=== PATIENT | female | born 1980 | race Caucasian/White ===

== ENCOUNTER 2016-12-12 14:21 | Emergency (ER) | payer SELFPAY ==
[~2016-12-12] VITALS: Ht 144.8 cm; Wt 30.3 kg
[2016-12-12 14:38] VITALS: BP 105/66; PULSE 77; RESP 18; TEMP 97.9; O2SAT 98
[2016-12-12] MEDS ORDERED: diphenhydrAMINE HCL 50 MG/ML VIAL IV PUSH ONE (15:30)
[2016-12-12] MEDS ORDERED: KETOROLAC TROMETHAMINE 30 MG/ML (IVP) VIAL IV PUSH ONE (15:30)
[2016-12-12] MEDS ORDERED: SODIUM CHLOR 0.9% 1000 ML INJ 1,000 ML IV ONE (15:30)
[2016-12-12] MEDS ORDERED: PROCHLORPERAZINE INJ 10 MG/2 ML VIAL IV PUSH ONE (15:30)
--- NOTE | 2016-12-12 15:38 | PD ---
HPI Chief Complaint: Headache Time Seen by Provider: 15:25 Travel History International Travel<30 days: No Contact w/Intl Traveler<30days: No Traveled to known affect area: No History of Present Illness HPI This is a 36-year-old female who presents to the emergency department with headache that started 7 days ago, constant like a band across her head, moderate severity associated with nausea but no vomiting. She says she has chronic headaches. She just moved from [place] where she was being prescribed sumatriptan, Zofran and Lortab for her headaches. She says she's been taking BUT she doesn't her. Her headache was gradual in onset. She denies any weakness, numbness, difficulty walking or talking. 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 migraines ?: Not LMP: 12/05/16 Social History Tobacco Use: No Allergies-Medications (Allergen,Severity, Reaction): Coded Allergies: topiramate (Verified Allergy, Unknown, 12/12/16) "mimics a seizure" Uncoded Allergies: steroids (Allergy, Unknown, 12/12/16) "will make me have a heart attack" Reported Meds & Prescriptions Reported Meds & Active Scripts Active Reported Multiple Vitamin 1 Tab 1 Tab PO DAILY Vitamin C (Ascorbic Acid) 250 Mg Chew 500 Mg CHEW DAILY B-12 (Cyanocobalamin) 500 Mcg Subl 500 Mcg SL DAILY Ferrous Gluconate 324 Mg (37.5 Mg Iron) Tab 325 Mg PO DAILY Baclofen 10 Mg Tab 5 Mg PO TID Indomethacin 25 Mg Cap 25 Mg PO BID Take with food, milk, or antacids to decrease stomach adverse effects. Zonisamide 100 Mg Cap 200 Mg PO DAILY Imitrex (Sumatriptan Succinate) 50 Mg Tab 50 Mg PO ONCE PRN If a satisfactory response has not been obtained at 2 hours, a second dose may be administered Zofran (Ondansetron HCl) 4 Mg Tab 4 Mg PO Q8HR PRN Review of Systems Except as stated in HPI: all other systems reviewed are Neg Physical Exam Narrative GENERAL:Well appearing, no acute distress SKIN: Focused skin assessment warm and dry. HEAD: Atraumatic. Normocephalic. EYES: Pupils equal and round. No injection or drainage. ENT: Moist mucous membranes NECK: Trachea midline. CARDIOVASCULAR: Regular rate and rhythm. No murmur appreciated. RESPIRATORY: Clear to auscultation. Breath sounds equal bilaterally. GASTROINTESTINAL: Abdomen soft, non-tender, nondistended. MUSCULOSKELETAL: No obvious deformities. NEUROLOGICAL: Awake and alert. No obvious cranial nerve deficits. No dysarthria or aphasia. No upper or lower extremity drift. No upper extremity ataxia. Visual ford intact. PSYCHIATRIC: Appropriate mood and affect; insight and judgment normal. Data Data Last Documented VS Vital Signs Date Time Temp Pulse Resp B/P (MAP) Pulse Ox O2 Delivery O2 Flow Rate FiO2 12/12/16 15:42 Room Air 12/12/16 14:38 97.9 77 18 105/66 (79) 98 Orders Orders ^ Insert Iv (12/12/16 15:30) Ketorolac Inj (Toradol Inj) (12/12/16 15:30) Prochlorperazine Inj (Compazine Inj) (12/12/16 15:30) Diphenhydramine Inj (Benadryl Inj) (12/12/16 15:30) Sodium Chlor 0.9% 1000 Ml Inj (Ns 1000 M (12/12/16 15:30) MDM Medical Decision Making Medical Screen Exam Complete: Yes Emergency Medical Condition: Yes Interpretation(s) Afebrile, no tachycardia, normotensive Differential Diagnosis Tension headache, migraine headache, subarachnoid hemorrhage Narrative Course This is a 36-year-old female who has a history of migraines who presents to the emergency department with an exacerbation of her chronic headaches over the past week. She has a normal neurologic exam. Her headache was gradual in onset and I don't have any suspicion for subarachnoid hemorrhage based on her symptoms. Patient was given Toradol, Compazine and Benadryl and she feels much better. She'll be discharged home on naproxen. Diagnosis Primary Impression: Migraine Qualified Codes: G43.009 - Migraine without aura, not intractable, without status migrainosus Patient Instructions: General Instructions Additional Instructions: If you develop severe worsening headache, persistent vomiting, numbness, weakness, difficulty walking or difficulty talking return to the emergency department immediately. Sometimes in the emergency department we did not identify the cause of headaches. If you continued to have headaches it is very important that you followup with your primary care physician as you may need further testing with an MRI. Med/Other Pt SpecificInfo: Prescription(s) given Scripts Naproxen (Naproxen) 250 Mg Tab 250 MG PO BID for 5 Days, TAB 0 Refills Prov: Lilly Heart MD 12/12/16 Disposition: 01 DISCHARGE HOME Condition: Stable Lilly Heart MD Dec 12, 2016 15:38
[2016-12-12] MEDS ORDERED: BACL10TA PO (15:47)
[2016-12-12] MEDS ORDERED: VITA250C3 CHEW (15:47)
[2016-12-12] MEDS ORDERED: ZONI100C2 PO (15:47)
[2016-12-12] MEDS ORDERED: MULTTAB67 PO (15:47)
[2016-12-12] MEDS ORDERED: INDO25CA PO (15:47)
[2016-12-12] MEDS ORDERED: IMIT50TA PO (15:47)
[2016-12-12] MEDS ORDERED: ZOFR4TAB PO (15:47)
[2016-12-12] MEDS ORDERED: FERR325T72 PO (15:47)
[2016-12-12] MEDS ORDERED: CYAN500S SL (15:47)
[2016-12-12] MEDS ORDERED: NAPR250T PO (16:51)
[2016-12-12 17:43] VITALS: BP 92/56; PULSE 70; RESP 16; O2SAT 100
== END 2016-12-12 17:46 | disposition home or self-care (01) ==
LOC: PHED 14:21
DX: G43.009 Migraine without aura, not intractable, without status migrainosus (principal)
CPT/HCPCS: 96361; 96374; 96375; 99284; J0780; J1200; J1885; J7030

== ENCOUNTER 2017-03-03 19:54 | Emergency (ER) | payer OTHER ==
[~2017-03-03] VITALS: Ht 154.9 cm; Wt 30.8 kg
[~2017-03-03 19:54] MED LIST: BACL10TA PO; FERR325T72 PO; IMIT50TA PO; INDO25CA PO; MULTTAB67 PO; NAPR250T4 PO; VITA250C3 CHEW; VITA500L2 SL; ZOFR4TAB PO; ZONI100C2 PO
[2017-03-03 19:58] VITALS: BP 107/67; PULSE 87; RESP 16; TEMP 97.4; O2SAT 100
[2017-03-03] MEDS ORDERED: ZONI1CAP26 PO (20:08)
--- NOTE | 2017-03-03 20:31 | PD ---
HPI Chief Complaint: Pain: Acute or Chronic Time Seen by Provider: 20:16 Travel History International Travel<30 days: No Contact w/Intl Traveler<30days: No Traveled to known affect area: No History of Present Illness HPI 36-year-old female here with right knee pain after twisting injury yesterday. She did not fall to the ground. She has pain with weightbearing and full extension and full flexion. She had a similar injury in the past which was a quadriceps tear. She reports this pain is less severe than that injury. She was followed by orthopedic doctor in [place]. Pain is relieved with rest. Symptom severity is moderate. PFSH Past Medical History Musculoskeletal: Yes Migraines: Yes ?: Not Past Surgical History Cardiac Surgery: Yes Cholecystectomy: Yes Other Surgery: Yes (SCOLIOSIS SX) Social History Alcohol Use: No Tobacco Use: No Substance Use: No Allergies-Medications (Allergen,Severity, Reaction): Coded Allergies: topiramate (Verified Allergy, Unknown, 03/03/17) "mimics a seizure" Uncoded Allergies: steroids (Allergy, Unknown, 12/12/16) "will make me have a heart attack" Reported Meds & Prescriptions Reported Meds & Active Scripts Active Reported Zonegran (Zonisamide) 25 Mg Cap 50 Mg PO HS Multiple Vitamin 1 Tab 1 Tab PO DAILY Vitamin C (Ascorbic Acid) 250 Mg Chew 500 Mg CHEW DAILY B-12 (Cyanocobalamin) 500 Mcg Subl 500 Mcg SL DAILY Ferrous Gluconate 324 Mg (37.5 Mg Iron) Tab 325 Mg PO DAILY Baclofen 10 Mg Tab 5 Mg PO TID Indomethacin 25 Mg Cap 25 Mg PO BID Take with food, milk, or antacids to decrease stomach adverse effects. Zonisamide 100 Mg Cap 200 Mg PO DAILY Imitrex (Sumatriptan Succinate) 50 Mg Tab 50 Mg PO ONCE PRN If a satisfactory response has not been obtained at 2 hours, a second dose may be administered Zofran (Ondansetron HCl) 4 Mg Tab 4 Mg PO Q8HR PRN Review of Systems Except as stated in HPI: all other systems reviewed are Neg Physical Exam Narrative GENERAL: Alert female well-appearing. Patient ambulated into the emergency room SKIN: Warm and dry. HEAD: Normocephalic. EYES: No injection or drainage. NECK: Supple, trachea midline. CARDIOVASCULAR: Regular rate and rhythm without murmurs, gallops, or rubs. RESPIRATORY: Breath sounds equal bilaterally. No accessory muscle use. GASTROINTESTINAL: Abdomen soft, non-tender, nondistended. MUSCULOSKELETAL: No cyanosis, or edema. Right lower extremity: Patient has tenderness over the anterior aspect of the knee. No deformity. No swelling or effusion. The knee is stable. Reported pain with flexion and full extension. 2+ popliteal, posterior tibial, dorsal pedis pulse. Normal sensation and brisk cap refill. Data Data Last Documented VS Vital Signs Date Time Temp Pulse Resp B/P (MAP) Pulse Ox O2 Delivery O2 Flow Rate FiO2 03/03/17 19:58 97.4 87 16 107/67 (80) 100 Orders Orders Ignacio Bandage (03/03/17 20:31) Crutches (03/03/17 20:31) MDM Medical Decision Making Medical Screen Exam Complete: Yes Emergency Medical Condition: Yes Differential Diagnosis Knee sprain, strain, meniscus injury, quadriceps tendon injury Narrative Course 36 -year-old female here with right knee pain for a minor twisting injury yesterday. She had a previous quadriceps tendon injury several years ago. The knee is stable. There is minimal swelling. She is ambulatory. The knee will be immobilized with Ignacio wrap and she'll be instructed to follow-up with orthopedic Diagnosis Primary Impression: Sprain, knee Qualified Codes: S83.91XA - Sprain of unspecified site of right knee, initial encounter Referrals: Payam Owusu MD Orthopedist Departure Forms: Tests/Procedures, Work Release Special Instructions: No bending for one week. Additional Instructions: Ignacio wrap and crutches for support. Follow-up with orthopedic doctor. Tylenol as in for pain. Disposition: 01 DISCHARGE HOME Condition: Stable AricreginaldoDivya SANABRIA Mar 03, 2017 20:30
== END 2017-03-03 20:42 | disposition home or self-care (01) ==
LOC: PHEFT 19:54
DX: S83.91XA Sprain of unspecified site of right knee, initial encounter (principal); M41.9 Scoliosis, unspecified; X50.1XXA Overexertion from prolonged static or awkward postures, initial encounter; Z79.899 Other long term (current) drug therapy
CPT/HCPCS: 99282; E0113

== ENCOUNTER 2017-04-11 13:22 | Emergency (ER) | payer OTHER ==
[~2017-04-11] VITALS: Ht 154.9 cm; Wt 31.6 kg
[~2017-04-11 13:22] MED LIST changes: -NAPR250T4 PO; +ZONI1CAP26 PO
[2017-04-11 13:26] VITALS: BP 121/79; PULSE 106; RESP 16; TEMP 97.8; O2SAT 100
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
[2017-04-11] MEDS ORDERED: IBUPROFEN 400 MG TAB PO ONE (13:45)
[2017-04-11] MEDS ORDERED: LIDOCAINE 1%/EPINEPHrine 1:100,000 SOLN 20 ML VIAL INFIL ONE (13:45)
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
[2017-04-11 14:41] VITALS: RESP 18
[2017-04-11] MEDS ORDERED: CEPH-460 PO (14:58)
[2017-04-11] MEDS ORDERED: IBUP1TAB5 PO (14:59)
[2017-04-11] MEDS ORDERED: CEPHALEXIN MONOHYDRATE 500 MG CAP PO ONE (15:00)
== END 2017-04-11 15:06 | disposition home or self-care (01) ==
LOC: PHEFT 13:22
DX: S81.012A Laceration without foreign body, left knee, initial encounter (principal); V00.141A Fall from scooter (nonmotorized), initial encounter
CPT/HCPCS: 12002; 73564

== ENCOUNTER 2017-04-24 09:28 | Emergency (ER) | payer OTHER ==
[~2017-04-24] VITALS: Ht 152.4 cm; Wt 31.0 kg
[~2017-04-24 09:28] MED LIST changes: +CEPH-460 PO; +IBUP1TAB5 PO
[2017-04-24 09:30] VITALS: BP 127/60; PULSE 91; RESP 16; TEMP 98; O2SAT 95
--- NOTE | 2017-04-24 11:26 | PD ---
HPI Chief Complaint: Wound/Suture/Staple Re-Check Time Seen by Provider: 10:40 Travel History International Travel<30 days: No Contact w/Intl Traveler<30days: No Traveled to known affect area: No History of Present Illness HPI This is a 36-year-old female here for suture removal to her left knee. She had sutures placed proximal 10 days ago. She denies fever or chills. No redness or drainage from the site. She reports mild tenderness at the site but this has been present since the injury. Severity is mild. No alleviating factors. PFSH Past Medical History Medical History: Denies Significant Hx Diminished Hearing: No Influenza Vaccination: Yes ?: Not Social History Alcohol Use: No Tobacco Use: No Allergies-Medications (Allergen,Severity, Reaction): Coded Allergies: prednisolone (Verified Allergy, Unknown, 04/24/17) topiramate (Verified Allergy, Unknown, 04/24/17) Reported Meds & Prescriptions Reported Meds & Active Scripts Active No Active Prescriptions or Reported Medications Review of Systems Except as stated in HPI: all other systems reviewed are Neg General / Constitutional: No: Fever Physical Exam Narrative GENERAL: Alert well-appearing 36-year-old female. SKIN: Warm and dry. Healing laceration to left anterior knee. No evidence of infection. Sutures in place. HEAD: Atraumatic. Normocephalic. EYES: No injection or drainage. NECK: Supple CARDIOVASCULAR: Regular rate and rhythm. RESPIRATORY: No respiratory distress. MUSCULOSKELETAL: Extremities without clubbing, cyanosis, or edema. No obvious deformities. See skin noted above Data Data Last Documented VS Vital Signs Date Time Temp Pulse Resp B/P (MAP) Pulse Ox O2 Delivery O2 Flow Rate FiO2 04/24/17 09:30 98.0 91 16 127/60 (82) 95 MDM Medical Decision Making Medical Screen Exam Complete: Yes Emergency Medical Condition: Yes Differential Diagnosis Suture removal, Wound infection, abscess Narrative Course This is a 36-year-old female here for suture removal. The wound is well- appearing. No evidence of infection. 5 sutures removed. Wound edges are well approximated. Procedures Procedure Narrative Suture removal Diagnosis Primary Impression: Visit for suture removal Referrals: Primary Care Physician Scripts No Active Prescriptions or Reported Meds Disposition: 01 DISCHARGE HOME Condition: Stable Divya Lawler Apr 24, 2017 11:26
== END 2017-04-24 11:31 | disposition home or self-care (01) ==
LOC: MERGE 09:28 → PHED 09:28 → PHEFT 11:31
DX: Z48.02 Encounter for removal of sutures (principal)
CPT/HCPCS: 99281

== ENCOUNTER 2017-08-21 18:32 | Emergency (ER) | payer OTHER ==
[~2017-08-21] VITALS: Ht 154.9 cm; Wt 31.0 kg
[2017-08-21 18:40] VITALS: BP 119/60; PULSE 88; RESP 16; TEMP 98.1; O2SAT 100
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
[2017-08-21] MEDS ORDERED: ACETAMINOPHEN 325 MG TAB PO ONE (19:00)
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
[2017-08-21] MEDS ORDERED: TYLETAB34 PO (20:25)
== END 2017-08-21 20:38 | disposition home or self-care (01) ==
LOC: PHEFT 18:32
DX: S80.01XA Contusion of right knee, initial encounter (principal); M79.1 Myalgia; G89.29 Other chronic pain; V00.831A Fall from motorized mobility scooter, initial encounter; Y93.I9 Activity, other involving external motion
CPT/HCPCS: 73564; 99283; E0113

== ENCOUNTER 2017-08-24 21:32 | Emergency (ER) | payer SELFPAY ==
[~2017-08-24 21:32] MED LIST changes: -CEPH-460 PO; -IBUP1TAB5 PO; +TYLETAB34 PO; -VITA500L2 SL
[2017-08-24 21:34] VITALS: BP 114/53; PULSE 84; RESP 18; TEMP 98.1; O2SAT 99
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
== END 2017-08-25 01:15 | disposition home or self-care (01) ==
LOC: NEPC 21:32
DX: S89.91XD Unspecified injury of right lower leg, subsequent encounter (principal); M25.461 Effusion, right knee; V28.9XXD Unspecified motorcycle rider injured in noncollision transport accident in traffic accident, subsequent encounter; Q79.0 Congenital diaphragmatic hernia; M41.9 Scoliosis, unspecified; Z88.8 Allergy status to other drugs, medicaments and biological substances; Z79.899 Other long term (current) drug therapy
CPT/HCPCS: 73700; 99283; L1830

== ENCOUNTER 2017-09-16 08:09 | Inpatient (IN) ==
[2017-09-16] MEDS ORDERED: Morphine Inj 4 MG/ML Vial IV.PUSH ONE (08:48)
[2017-09-16] MEDS ORDERED: Sodium Chlor 0.9% Inj 500 ML IV.SIG ONE (08:50)
[2017-09-16] MEDS ORDERED: Diatrizoate Meglum/Diatrizoate Sod Liq 9 ML UDC PO ONE (09:05)
[2017-09-16 09:13] LABS: Chloride 104 meq/L (98-107); Potassium 5.1 meq/L (3.5-5.1); Sodium 136 meq/L (136-145)
[2017-09-16 09:17] LABS: Albumin 4.3 g/dL (3.4-5.0); Anion Gap 6 meq/L (5-15); Blood Urea Nitrogen 18 mg/dL (7-18); Carbon Dioxide 26.4 meq/L (21.0-32.0); Glucose,Random 151 mg/dL (74-106); Lipase 80 U/L (73-393)
[2017-09-16 09:20] LABS: Alanine Aminotransferase 19 U/L (10-53); Aspartate Aminotransferase 31 U/L (15-37); Glomerular Filtration Rate Greater Than 89 mL/min (>89)
[2017-09-16 09:22] LABS: Total Protein 8.4 g/dL (6.4-8.2)
[2017-09-16 09:23] LABS: Alkaline Phosphatase 47 U/L (45-117)
[2017-09-16 09:39] LABS: Baso # (Auto) 0.1 th/mm3 (0.0-0.2); Baso % (Auto) 0.4 % (0.0-2.0); Eos % (Auto) 0.2 % (0.0-4.0); Hematocrit 43.1 % (35.0-46.0); Hemoglobin 13.9 gm/dL (11.6-15.3); Lymph # (Auto) 0.8 th/mm3 (1.0-4.8); Lymph % (Auto) 6.3 % (9.0-44.0); Mean Corpuscular HGB Conc 32.1 % (32.0-36.0); Mean Corpuscular Hemoglobin 30.4 pg (27.0-34.0); Mean Corpuscular Volume 94.8 fL (80.0-100.0); Mean Platelet Volume 8.6 fL (7.0-11.0); Mono # (Auto) 0.5 th/mm3 (0.0-0.9); Neut # (Auto) 11.8 th/mm3 (1.8-7.7); Neut % (Auto) 89.1 % (16.0-70.0); Platelet Count 287 th/mm3 (150-450); Red Blood Count 4.55 mil/mm3 (4.00-5.30); Red Cell Distribution Width 15.5 % (11.6-17.2); White Blood Count 13.2 th/mm3 (4.0-11.0)
[2017-09-16 09:53] LABS: Bilirubin,Urine Negative (Negative); Clarity,Urine Clear (Clear); Color,Urine Yellow (Yellw/Straw); Glucose,Urine (UA) Negative (Negative); Leukocyte Esterase,Urine Negative (Negative); Nitrite,Urine Negative (Negative); Specific Gravity,Urine 1.025 (1.002-1.035); Urobilinogen,Urine 0.2 mg/dL (Less than 2)
[2017-09-16 10:11] LABS: Collection Time,Urine 945 hours
[2017-09-16 10:13] LABS: Amorphous Sediment,Urine Moderate /hpf; Mucus,Urine Moderate /lpf (Occasional); Squamous Epithelial Cell,Urine Greater than 10 /hpf (0-5); WBC,Urine 0-5 /hpf (0-5)
--- NOTE | 2017-09-16 10:49 | ED ---
HPI General Chief complaint: Nausea/Vomiting/Diarrhea Stated complaint: Nausea/Vomiting x 4 am today Time Seen by Provider: 09/16/17 08:41 History of Present Illness HPI narrative: 37-year-old woman with history of gastroschisis as a new cholecystectomy, presents emerged department with nausea vomiting times 4 AM. Some abdominal pain and cramping as well as some distention with this. No diarrhea. Positive chills. She has not had similar problems before. No definite sick contacts. No travel or unusual foods. Vomiting is been persistent, severe. No other aggravating or alleviating factors. Abdominal pain is generalized without radiation. Related Data Home Medications Medication Instructions Recorded Confirmed Multi Vitamin 1 tab PO DAILY 09/16/17 09/16/17 baclofen 5 mg PO TID PRN 09/16/17 09/16/17 ferrous gluconate 324 mg PO DAILY 09/16/17 09/16/17 indomethacin 25 mg PO BID 09/16/17 09/16/17 ondansetron HCl [Zofran] 4 mg PO QID PRN 09/16/17 09/16/17 sumatriptan succinate [Imitrex] 50 mg PO Q2-4H PRN 09/16/17 09/16/17 zonisamide 100 mg PO DAILY 09/16/17 09/16/17 zonisamide [Zonegran] 25 mg PO HS 09/16/17 09/16/17 Allergies Allergy/AdvReac Type Severity Reaction Status Date / Time prednisolone Allergy Unknown Verified 08/24/17 21:36 topiramate Allergy Unknown Verified 08/24/17 21:36 steroids Allergy Unknown Uncoded 12/12/16 14:43 Review of Systems ROS Unobtainable All other systems reviewed negative except as stated in HPI [facility] Medical History Medical History Congenital diaphragmatic hernia (Acute) Gastroschisis (Acute) Migraines (Acute) Scoliosis (Acute) Surgical History Surgical History Hx of cholecystectomy (Acute) Hx of heart surgery (Acute) Hx of knee surgery (Acute) Social History Social History Substance History: No History of Abuse Second Hand Smoke Exposure: No Smoking Status: Never smoker How Often Do You Have a Drink Containing Alcohol: Never Recent Travel in [facility] within the Last 8 Weeks: No Recent Out of Country Travel within the Last 8 Weeks: No Immunization History Tetanus Immunization: Unsure Hx Influenza Vaccine This Season: Yes Exam Narrative Exam Narrative: GENERAL: Very petite 37-year-old woman with no acute distress. SKIN: Focused skin assessment warm/dry. HEAD: Atraumatic. Normocephalic. EYES: Pupils equal and round. No scleral icterus. No injection or drainage. ENT: No nasal bleeding or discharge. Mucous membranes pink and moist. NECK: Trachea midline. No JVD. CARDIOVASCULAR: Regular rate and rhythm. No murmur appreciated. RESPIRATORY: No accessory muscle use. Clear to auscultation. Breath sounds equal bilaterally. GASTROINTESTINAL: Abdomen is distended, tympanic to percussion, mild diffuse tenderness. MUSCULOSKELETAL: No obvious deformities. Nearly cachectic. NEUROLOGICAL: Awake and alert. No obvious cranial nerve deficits. Motor grossly within normal limits. Normal speech. PSYCHIATRIC: Appropriate mood and affect; insight and judgment normal. Course Initial Documented Vital Signs Temperature 97.8 F 09/16/17 08:20 Pulse Rate 89 09/16/17 08:20 Respiratory Rate 16 09/16/17 08:20 Blood Pressure 96/57 L 09/16/17 08:20 Pulse Oximetry 98 09/16/17 08:20 Last Documented Vital Signs Temperature 97.8 F 09/16/17 08:20 Pulse Rate 93 H 09/16/17 13:00 Respiratory Rate 18 09/16/17 13:00 Blood Pressure 106/73 09/16/17 13:00 Pulse Oximetry 98 09/16/17 13:00 Medical Decision Making [facility] Narrative Medical decision making narrative: This is a 37-year-old woman, history of complex abdominal surgeries as an , no trouble since of bowel obstructions or the like, very cachectic appearing, here with nausea vomiting abdominal distention worrisome for obstruction. No diarrhea to suggest gastroenteritis. Will check labs, CT with IV and p.o. contrast, reassess. Lab Data Lab results reviewed: Yes I reviewed the patient's lab results. Result diagrams: 09/16/17 09:00 09/16/17 09:00 Lab Results 09/16/17 09/16/17 09/16/17 Range/Units 09:00 09:00 09:45 CBC w Diff Auto diff final WBC 13.2 H (4.0-11.0) th/mm3 RBC 4.55 (4.00-5.30) mil/mm3 Hgb 13.9 (11.6-15.3) gm/dL Hct 43.1 (35.0-46.0) % MCV 94.8 (80.0-100.0) fL MCH 30.4 (27.0-34.0) pg MCHC 32.1 (32.0-36.0) % RDW 15.5 (11.6-17.2) % Plt Count 287 (150-450) th/mm3 MPV 8.6 (7.0-11.0) fL Neut % (Auto) 89.1 H (16.0-70.0) % Lymph % (Auto) 6.3 L (9.0-44.0) % Robertson % (Auto) 4.0 (0.0-8.0) % Eos % (Auto) 0.2 (0.0-4.0) % Baso % (Auto) 0.4 (0.0-2.0) % Neut # (Auto) 11.8 H (1.8-7.7) th/mm3 Lymph # (Auto) 0.8 L (1.0-4.8) th/mm3 Robertson # (Auto) 0.5 (0.0-0.9) th/mm3 Eos # (Auto) 0.0 (0.0-0.4) th/mm3 Baso # (Auto) 0.1 (0.0-0.2) th/mm3 WBC Differential . Differential Comment . Sodium 136 (136-145) meq/L Potassium 5.1 (3.5-5.1) meq/L Chloride 104 (98-107) meq/L Carbon Dioxide 26.4 (21.0-32.0) meq/L Anion Gap 6 (5-15) meq/L BUN 18 (7-18) mg/dL Creatinine 0.71 (0.50-1.00) mg/dL Estimated GFR Greater than 89 (>89) mL/min Random Glucose 151 H (74-106) mg/dL Calcium 9.0 (8.5-10.1) mg/dL Total Bilirubin 0.5 (0.2-1.0) mg/dL AST 31 (15-37) U/L ALT 19 (10-53) U/L Alkaline Phosphatase 47 (45-117) U/L Total Protein 8.4 H (6.4-8.2) g/dL Albumin 4.3 (3.4-5.0) g/dL Lipase 80 (73-393) U/L Ur Collection Type Clean catch Urine Color Yellow (Yellw/Straw) Urine Clarity Clear (Clear) Urine pH 6.0 (5.0-8.5) Ur Specific [place] 1.025 (1.002-1.035) Urine Protein Trace (Neg-Trace) mg/dL Urine Glucose (UA) Negative (Negative) mg/dL Urine Ketones Trace H (Negative) mg/dL Urine Occult Blood Large H (Negative) Urine Nitrate Negative (Negative) Urine Bilirubin Negative (Negative) Urine Urobilinogen 0.2 (Less than 2) mg/dL Ur Leukocyte Esterase Negative (Negative) Urine RBC 15-50 H (0-3) /hpf Urine WBC 0-5 (0-5) /hpf Ur Squamous Epith Cells Greater than 10 H (0-5) /hpf Amorphous Sediment Moderate H (None) /hpf Urine Mucus Moderate H (Occasional) /lpf Micro UA Comment Culture not ind Urine Culture Comments Culture not ind Urine Collection Time 945 hours Imaging Data Attestation: I personally reviewed and interpreted this imaging study as follows : My impression: Multiple air-fluid levels, dilated bowel. Radiologist's impression: Abdomen/Pelvis CT 09/16/17 08:48 CONCLUSION: 1. Multiple loops of borderline dilated small bowel with multiple air-fluid levels. The findings are of concern for early or partial small bowel obstruction. 2. Moderate to severe scoliosis and postsurgical changes. 3. Apparent small leiomyoma in the uterus. There is free fluid in the cul-de- sac which can be a physiologic finding in a female patient this age. Discharge Plan Discharge Disposition Patient Disposition: 30 Still Patient Physicians Team ED Provider: Enrrique Finley Primary Care Provider: UNKNOWN, Rxs /Orders / Referrals /Forms Prescriptions: No Action ondansetron HCl [Zofran] 4 mg Tablet 4 mg PO QID PRN (Reason: Nausea) RF: 0 sumatriptan succinate [Imitrex] 50 mg Tablet 50 mg PO Q2-4H PRN (Reason: Migraine Headache) RF: 0 zonisamide 100 mg Capsule 100 mg PO DAILY RF: 0 indomethacin 25 mg Capsule 25 mg PO BID RF: 0 zonisamide [Zonegran] 25 mg Capsule 25 mg PO HS RF: 0 ferrous gluconate 324 mg (37.5 mg iron) Tablet 324 mg PO DAILY RF: 0 baclofen 5 mg Tablet 5 mg PO TID PRN (Reason: Pain) RF: 0 Multi Vitamin 1 tab PO DAILY RF: 0 Discharge Interventions Interventions: Vital Signs Last Done: 09/16/17 13:00 Status ED Status: With Doctor
--- NOTE | 2017-09-16 13:01 | CT ---
EXAM DATE: 09/16/2017 12:41 PM EDT AGE/SEX: 37 years / Female INDICATIONS: Nausea and vomiting for four days, CLINICAL DATA: This is the patient's initial encounter. Patient reports that signs and symptoms have been present for 4 - 6 days and indicates a pain score of 7/10. MEDICAL/SURGICAL HISTORY: . scoliosis Cholecystectomy. ORAL CONTRAST: Partial prescribed oral contrast ingested. RADIATION DOSE: 4.44 CTDI (mGy) COMPARISON: No prior exams available for comparison. TECHNIQUE: Multiple contiguous axial images were obtained through the abdomen and pelvis following b olus infusion of 70 ml Omnipaque 350 (iohexol) nonionic water-soluble contrast as a single exam dos e. Partial prescribed oral contrast ingested. Using automated exposure control and adjustment of the mA and/or kV according to patient size, radiation dose was kept as low as reasonably achievable to o btain optimal diagnostic quality images. DICOM format image data is available electronically for rev iew and comparison. FINDINGS: Lower Lungs: The visualized lower lungs are clear. Liver: The liver has a homogeneous density without space-occupying lesion. There is no dilation of th e biliary tree. The patient is status post cholecystectomy. Spleen: Homogeneous density without enlargement. Pancreas: Unremarkable without mass or calcification. Kidneys: Normal in size and shape. No evidence of a solid mass or hydronephrosis. There is a small s imple appearing cyst in the left kidney. Adrenal Glands: Unremarkable. Aorta: The aorta and proximal iliac vessels are grossly unremarkable without aneurysmal dilation. Bowel/Mesentery: There is a moderate amount of stool throughout the colon. There are multiple loops of borderline dilated small bowel loops containing fluid with multiple air-fluid levels. These are no chalo in the right side of the abdomen and pelvis. There is no free air. There is fluid in the cul-de-s ac. Abdominal Wall: Intact. Retroperitoneum: No evidence of adenopathy in the retrocrural, para-aortic, or deep pelvic regions. Bladder: Contours are smooth. Reproductive Organs: There is a 1 cm low-attenuation lesion in the right side of the uterus. Uterus is located in the right side of the pelvis. There is a small amount of free fluid in the cul-de-sac. Inguinal: The inguinal region is unremarkable without evidence of adenopathy. Bony Structures: There is a grade 2 severe rotatory scoliosis with postsurgical changes in the thora cic and upper lumbar spine with posterior fixation rods. CONCLUSION: 1. Multiple loops of borderline dilated small bowel with multiple air-fluid levels. The findings are of concern for early or partial small bowel obstruction. 2. Moderate to severe scoliosis and postsurgical changes. 3. Apparent small leiomyoma in the uterus. There is free fluid in the cul-de-sac which can be a phys iologic finding in a female patient this age. Electronically signed by: Ruben Gonzalez MD 09/16/2017 1:00 PM EDT
[2017-09-16] MEDS ORDERED: Dextrose 50% in Water 50 ML Vial IV.PUSH PRN (15:21)
--- NOTE | 2017-09-16 15:29 | P.HP ---
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 Patient states that she is in normal state of health until yesterday afternoon she just was not feeling well he started getting some upset stomach, nausea. She was last time that she ate was yesterday for lunch she had a turkey sandwich. She did not eat dinner because she did not feel well. Then this morning when she woke up she started having intractable nausea and vomiting. She states that she was having some abdominal discomfort which came prior to the nausea and vomiting. Patient came to emergency department for evaluation found to have a partial or early small bowel obstruction. Because of that reason ER physician recommended patient be admitted to the hospital for further evaluation and management. - Diagnosis (1) Small bowel obstruction (2) Systemic inflammatory response syndrome (3) Leukocytosis (4) Hyperglycemia Inpatient Certification: I certify that the inpatient services were ordered in accordance with Medicare regulations governing the order. This includes certification that hospital inpatient services are reasonable and necessary and in the case of services not specified as inpatient-only under 42 CFR 419.22(n), that they are appropriately provided as inpatient services in accordance to with the 2-midnight benchmark under 43 CFR 412.3(e) Review of Systems All other systems reviewed negative except as stated in HPI Gastrointestinal: Reports abdominal pain, Reports nausea, Reports vomiting PMFSH - History History Provided By: Patient - Medical History Medical History: Medical History (Last Reviewed 09/16/17 @ 15:13 by MASSIMO Collins) Congenital diaphragmatic hernia Gastroschisis Migraines Scoliosis - Surgical History Surgical History: Surgical History (Last Updated 09/16/17 @ 15:12 by MASSIMO Collins) Hx of cholecystectomy Hx of knee surgery - Family History Family History: Family History (Last Updated 09/16/17 @ 15:13 by MASSIMO Collins) Mother Family history of pancreatic cancer Father Family history of myocardial infarction - Tobacco History Second Hand Smoke Exposure: No Smoking Status: Never smoker - Alcohol History How Often Do You Have a Drink Containing Alcohol: Never - Substance Use History Substance History: No History of Abuse - Travel History Recent Travel in the [place] Within the Last 8 Weeks: No Recent Travel Out of the Country Within the Last 8 Weeks: No - Immunization History Tetanus Immunization: Unsure Hx Influenza Vaccine This Season: Yes Medications and Allergies Active Medications: Active Medications Sodium Chloride (Ns Flush) 2 ml IV.FLUSH PRN PRN PRN Reason: FLUSH AFTER USING IV ACCESS Allergies Allergy/AdvReac Type Severity Reaction Status Date / Time prednisolone Allergy Severe Difficulty Verified 09/16/17 15:20 Breathing topiramate Allergy Severe Hallucinati Verified 09/16/17 15:20 ons steroids Allergy Severe Chest Pain Uncoded 09/16/17 15:20 Home Medications Medication Instructions Recorded Confirmed Type Multi Vitamin 1 tab PO DAILY 09/16/17 09/16/17 History baclofen 5 mg PO TID PRN 09/16/17 09/16/17 History ferrous gluconate 324 mg PO DAILY 09/16/17 09/16/17 History indomethacin 25 mg PO BID 09/16/17 09/16/17 History ondansetron HCl [Zofran] 4 mg PO QID PRN 09/16/17 09/16/17 History sumatriptan succinate [Imitrex] 50 mg PO Q2-4H PRN 09/16/17 09/16/17 History zonisamide 100 mg PO DAILY 09/16/17 09/16/17 History zonisamide [Zonegran] 25 mg PO HS 09/16/17 09/16/17 History Exam Vital signs: Vital Signs 09/16/17 08:20 09/16/17 09:03 09/16/17 09:22 Temperature 97.8 F Pulse Rate 89 95 H Respiratory Rate 16 Blood Pressure 96/57 L 97/63 L Pulse Oximetry 98 99 98 09/16/17 13:00 Temperature Pulse Rate 93 H Respiratory Rate 18 Blood Pressure 106/73 Pulse Oximetry 98 Intake & Output 09/15/17 09/16/17 09/16/17 18:59 06:59 18:59 Intake Total 500 / 500 Balance 500 / 500 Weight 30 kg Intake: IV 500 / 500 NS Inj 500 ML @ Wide Open IV. 500 / 500 SIG BOLUS ONE Rx#:[id number] Narrative: GENERAL: Well-developed, frail and cachectic, in no acute distress. alert and orientated HEENT: Head is normocephalic without any lesions or masses noted. Facial features are symmetric. Eyes: Pupils equal round reactive to light. Extraocular muscles are intact. Conjunctivae were clear. Oropharyngeal: Pharynx without any erythema edema. Tongue is midline without deviation. Buccal mucosa is moist without any masses or lesions NECK: Supple without any masses. Trachea midline no deviation. No JVD, no bruits are appreciated CARDIAC: Regular rhythm, regular rate. S1/S2 are heard. No murmurs gallops or rubs. LUNGS: Clear to auscultation bilaterally. No wheeze, rhonchi or rales. No use of accessory muscles on inspiration or expiration. ABDOMEN: Soft, nontender. Nondistended. Bowel sounds heard in all 4 quadrants. No organomegaly or masses. Negative rebound, negative guarding EXTREMITIES: No edema, pulses are equal bilaterally. No cyanosis or clubbing NEUROLOGY: Mood and affect appear appropriate. Cranial nerves II through XII grossly intact. Muscle strength 5/5 in upper and lower extremities bilaterally. Deep tendon reflexes are 2+ in upper and lower extremities bilaterally. Results - Labs CBC & Chem 7: 09/16/17 09:00 09/16/17 09:00 Labs: Laboratory Results - last 24 hr 09/16/17 09/16/17 09/16/17 09:00 09:00 09:45 CBC w Diff Auto diff final WBC 13.2 H RBC 4.55 Hgb 13.9 Hct 43.1 MCV 94.8 MCH 30.4 MCHC 32.1 RDW 15.5 Plt Count 287 MPV 8.6 Neut % (Auto) 89.1 H Lymph % (Auto) 6.3 L [place] % (Auto) 4.0 Eos % (Auto) 0.2 Baso % (Auto) 0.4 Neut # (Auto) 11.8 H Lymph # (Auto) 0.8 L [place] # (Auto) 0.5 Eos # (Auto) 0.0 Baso # (Auto) 0.1 WBC Differential . Differential Comment . Sodium 136 Potassium 5.1 Chloride 104 Carbon Dioxide 26.4 Anion Gap 6 BUN 18 Creatinine 0.71 Estimated GFR Greater than 89 Random Glucose 151 H Calcium 9.0 Total Bilirubin 0.5 AST 31 ALT 19 Alkaline Phosphatase 47 Total Protein 8.4 H Albumin 4.3 Lipase 80 Ur Collection Type Clean catch Urine Color Yellow Urine Clarity Clear Urine pH 6.0 Ur Specific [place] 1.025 Urine Protein Trace Urine Glucose (UA) Negative Urine Ketones Trace H Urine Occult Blood Large H Urine Nitrate Negative Urine Bilirubin Negative Urine Urobilinogen 0.2 Ur Leukocyte Esterase Negative Urine RBC 15-50 H Urine WBC 0-5 Ur Squamous Epith Cells Greater than 10 H Amorphous Sediment Moderate H Urine Mucus Moderate H Micro UA Comment Culture not ind Urine Culture Comments Culture not ind Urine Collection Time 945 - Imaging Impressions Abdomen/Pelvis CT 09/16/17 08:48 CONCLUSION: 1. Multiple loops of borderline dilated small bowel with multiple air-fluid levels. The findings are of concern for early or partial small bowel obstruction. 2. Moderate to severe scoliosis and postsurgical changes. 3. Apparent small leiomyoma in the uterus. There is free fluid in the cul-de- sac which can be a physiologic finding in a female patient this age. Caprini VTE Risk Assessment Caprini VTE Risk Assessment: No/Low Risk (score <= 1) Caprini Risk Assessment Model: Point Value = 1 Point Value = 2 Point Value = 3 Point Value = 5 Age 41-60 Minor surgery BMI > 25 kg/m2 Swollen legs Varicose veins or History of unexplained or recurrent spontaneous Oral contraceptives or hormone replacement Sepsis (< 1 month) Serious lung disease, including pneumonia (< 1 month) Abnormal pulmonary function Acute myocardial infarction Congestive heart failure (< 1 month) History of inflammatory bowel disease Medical patient at bed rest Age 61-74 Arthroscopic surgery Major open surgery (> 45 min) Laparoscopic surgery (> 45 min) Malignancy Confined to bed (> 72 hours) Immobilizing plaster cast Central venous access Age >= 75 History of VTE Family history of VTE Factor V Leiden Prothrombin [id number] Lupus anticoagulant Anticardiolipin antibodies Elevated serum homocysteine Heparin-induced thrombocytopenia Other congenital or acquired thrombophilia Stroke (< 1 month) Elective arthroplasty Hip, pelvis, or leg fracture Acute spinal cord injury (< 1 month) Prophylaxis Regimen: Total Risk Factor Score Risk Level Prophylaxis Regimen 0-1 Low Early ambulation 2 Moderate Order ONE of the following: *Sequential Compression Device (SCD) *Heparin 5000 units SQ BID 3-4 Higher Order ONE of the following medications: *Heparin 5000 units SQ TID *Enoxaparin/Lovenox 40 mg SQ daily (WT < 150 kg, CrCl > 30 mL/min) *Enoxaparin/Lovenox 30 mg SQ daily (WT < 150 kg, CrCl > 10-29 mL/min) *Enoxaparin/Lovenox 30 mg SQ BID (WT < 150 kg, CrCl > 30 mL/min) AND/OR *Sequential Compression Device (SCD) 5 or more Highest Order ONE of the following medications: *Heparin 5000 units SQ TID (Preferred with Epidurals) *Enoxaparin/Lovenox 40 mg SQ daily (WT < 150 kg, CrCl > 30 mL/min) *Enoxaparin/Lovenox 30 mg SQ daily (WT < 150 kg, CrCl > 10-29 mL/min) *Enoxaparin/Lovenox 30 mg SQ BID (WT < 150 kg, CrCl > 30 mL/min) AND *Sequential Compression Device (SCD) Assessment and Plan - Assessment (1) Small bowel obstruction Code(s): K56.609 - Unspecified intestinal obstruction, unspecified as to partial versus complete obstruction Status: Acute (2) Systemic inflammatory response syndrome Code(s): R65.10 - Systemic inflammatory response syndrome (SIRS) of non- infectious origin without acute organ dysfunction Status: Acute (3) Leukocytosis Code(s): D72.829 - Elevated white blood cell count, unspecified Status: Acute (4) Hyperglycemia Code(s): R73.9 - Hyperglycemia, unspecified Status: Acute - Plan Systemic inflammatory response syndrome -Likely secondary to small bowel obstruction -Patient presented with leukocytosis, tachycardia, no infectious source has been identified, patient has had bowel obstruction -Urinalysis is unremarkable for any infection -Obtain blood cultures -Continue IV fluids Early or partial small bowel obstruction -Patient does have history of abdominal surgeries with childhood gastroschisis, cholecystectomy -CT scan of the abdomen does show multiple loops of borderline dilated small bowel with multiple air-fluid levels findings are concerning for early or partial small bowel obstruction -We will keep patient n.p.o., start IV fluids, bowel rest -Zofran as needed for nausea or vomiting -Morphine for pain control -Consult general surgery for further recommendations Leukocytosis -Likely etiology could be from concentration. No signs of infection at this time -Follow CBC DVT prevention -Sequential compression devices
[2017-09-16] MEDS: Insulin NovoLOG Aspart Correctional Sugar Inj SQ SCH (16:42)
[2017-09-16] MEDS: Sod Chloride 0.9% Inj 1,000 ML IV.CONT SCH (16:52)
--- NOTE | 2017-09-16 17:41 | P.CONGS ---
HPI Gen Surgery Consult Note Consult date: 09/16/17 Reason for consult: abdominal pain Requesting physician: Aung Mishra Narrative: This is a 37 year old female with a past medical history of gastroschisis, migraines and scoleciasis. She was in her usual state of health until yesterday after eating a turkey sandwich. She had sudden onset of abdominal pain with associated nausea and vomiting. She denies any recent travel or known sick contacts. She reports her last bowel movement was this morning at about 0530 which was normal, soft and brown. She works in the [employer] at here at [facility]. She has never had an episode of abdominal pain like this before. A CT abdomen/pelvis was obtained which shows multiple loops of borderline dilated small bowel with air-fluid levels. A General Surgery consultation has been requested. <Radha Cordero - Last Filed: 09/16/17 17:29> Review of Systems Constitutional: Denies body ache(s), Denies chills, Denies fever(s) Eyes: Denies blurry vision Ears, Nose, Mouth, and Throat: Denies abnormal hearing, Denies dizziness Cardiovascular: Denies chest pain, Denies chest pain at rest, Denies chest pain with activity Respiratory: Denies chest congestion, Denies cough Gastrointestinal: Reports abdominal pain, Reports nausea, Reports vomiting Genitourinary: Denies pelvic pain Musculoskeletal: Denies abnormal walking, Denies back pain Skin/Breast: Denies skin pain Neurologic: Denies abnormal hearing, Denies headache(s), Denies lack of coordination Psychiatric: Denies anxiety, Denies depression Endocrine: Denies cold intolerance Hematologic/Lymphatic: Denies easy bleeding Allergic/Immunologic: Denies GI upset with certain foods <Radha Cordero - Last Filed: 09/16/17 17:29> PMFSH - History History Provided By: Patient - Medical History Medical History: Medical History (Last Reviewed 09/16/17 @ 15:13 by MASSIMO Collins) Congenital diaphragmatic hernia Gastroschisis Migraines Scoliosis - Surgical History Surgical History: Surgical History (Last Updated 09/16/17 @ 17:40 by ELLY Berger) H/O exploratory laparotomy Hx of cholecystectomy Hx of knee surgery - Family History Family History: Family History (Last Updated 09/16/17 @ 15:13 by MASSIMO Collins) Mother Family history of pancreatic cancer Father Family history of myocardial infarction - Tobacco History Second Hand Smoke Exposure: No Tobacco Use In Past 30 Days: No Smoking Status: Never smoker - Alcohol History How Often Do You Have a Drink Containing Alcohol: Never - Substance Use History Substance History: No History of Abuse - Travel History History of Recent Travel: No Recent Travel in the [place] Within the Last 8 Weeks: No Recent Travel Out of the Country Within the Last 8 Weeks: No - Immunization History Tetanus Immunization: Unsure Hx Influenza Vaccine This Season: Yes <Radha Cordero - Last Filed: 09/16/17 17:29> - Medical History Medical History: Medical History (Last Reviewed 09/16/17 @ 15:13 by MASSIMO Collins) Congenital diaphragmatic hernia Gastroschisis Migraines Scoliosis - Surgical History Surgical History: Surgical History (Last Updated 09/16/17 @ 17:40 by ELLY Berger) H/O exploratory laparotomy Hx of cholecystectomy Hx of knee surgery - Family History Family History: Family History (Last Updated 09/16/17 @ 15:13 by MASSIMO Collins) Mother Family history of pancreatic cancer Father Family history of myocardial infarction <Ruben Martinez - Last Filed: 09/16/17 18:28> Medications and Allergies Active Medications: Active Medications Dextrose (D50w Vial) 50 ml IV.PUSH UNSCH PRN PRN Reason: PER HYPOGLYCEMIA PROTOCOL Glucagon (Glucagon Inj) 1 mg OTHER PRN PRN PRN Reason: for Hypoglycemia Protocol Sodium Chloride (Ns Inj) 1,000 mls @ 100 mls/hr IV.CONT .Q10H NICOLE Last Admin: 09/16/17 16:52 Dose: 100 mls/hr Insulin Aspart (Novolog Insulin Correctional Sugar Inj) 0 unit SQ ACHS NICOLE; Protocol Last Admin: 09/16/17 16:42 Dose: Not Given Morphine Sulfate (Morphine Inj) 2 mg IV.PUSH Q4H PRN PRN Reason: Pain 1-10 Ondansetron HCl (Zofran Inj) 4 mg IV.PUSH Q6H PRN PRN Reason: NAUSEA OR VOMITING Sodium Chloride (Ns Flush) 2 ml IV.FLUSH PRN PRN PRN Reason: FLUSH AFTER USING IV ACCESS <Radha Cordero - Last Filed: 09/16/17 17:29> Active Medications: Active Medications Dextrose (D50w Vial) 50 ml IV.PUSH UNSCH PRN PRN Reason: PER HYPOGLYCEMIA PROTOCOL Glucagon (Glucagon Inj) 1 mg OTHER PRN PRN PRN Reason: for Hypoglycemia Protocol Sodium Chloride (Ns Inj) 1,000 mls @ 100 mls/hr IV.CONT .Q10H NICOLE Last Admin: 09/16/17 16:52 Dose: 100 mls/hr Insulin Aspart (Novolog Insulin Correctional Sugar Inj) 0 unit SQ ACHS NICOLE; Protocol Last Admin: 09/16/17 16:42 Dose: Not Given Morphine Sulfate (Morphine Inj) 2 mg IV.PUSH Q4H PRN PRN Reason: Pain 1-10 Ondansetron HCl (Zofran Inj) 4 mg IV.PUSH Q6H PRN PRN Reason: NAUSEA OR VOMITING Sodium Chloride (Ns Flush) 2 ml IV.FLUSH PRN PRN PRN Reason: FLUSH AFTER USING IV ACCESS <Ruben Martinez - Last Filed: 09/16/17 18:28> Allergies Allergy/AdvReac Type Severity Reaction Status Date / Time prednisolone Allergy Severe Difficulty Verified 09/16/17 15:20 Breathing topiramate Allergy Severe Hallucinati Verified 09/16/17 15:20 ons steroids Allergy Severe Chest Pain Uncoded 09/16/17 15:20 Home Medications Medication Instructions Recorded Confirmed Type Multi Vitamin 1 tab PO DAILY 09/16/17 09/16/17 History baclofen 5 mg PO TID PRN 09/16/17 09/16/17 History ferrous gluconate 324 mg PO DAILY 09/16/17 09/16/17 History indomethacin 25 mg PO BID 09/16/17 09/16/17 History ondansetron HCl [Zofran] 4 mg PO QID PRN 09/16/17 09/16/17 History sumatriptan succinate [Imitrex] 50 mg PO Q2-4H PRN 09/16/17 09/16/17 History zonisamide 100 mg PO DAILY 09/16/17 09/16/17 History zonisamide [Zonegran] 25 mg PO HS 09/16/17 09/16/17 History Exam Vital signs: Vital Signs 09/16/17 08:20 09/16/17 09:03 09/16/17 09:22 Temperature 97.8 F Pulse Rate 89 95 H Respiratory Rate 16 Blood Pressure 96/57 L 97/63 L Pulse Oximetry 98 99 98 09/16/17 13:00 09/16/17 16:00 Temperature 99.1 F Pulse Rate 93 H 93 H Respiratory Rate 18 16 Blood Pressure 106/73 94/55 L Pulse Oximetry 98 98 Intake & Output 09/15/17 09/16/17 09/16/17 18:59 06:59 18:59 Intake Total 500 / 500 Balance 500 / 500 Weight 30 kg Intake: IV 500 / 500 NS Inj 500 ML @ Wide Open IV. 500 / 500 SIG BOLUS ONE Rx#:[id number] Narrative: GENERAL: Very thin 37 year old pleasant female resting in bed in no acute distress. SKIN: Warm and dry. HEAD: Atraumatic. Normocephalic. EYES: Pupils equal and round. No scleral icterus. No injection or drainage. ENT: No nasal bleeding or discharge. Mucous membranes pink and moist. NECK: Trachea midline. CARDIOVASCULAR: Regular rate and rhythm. RESPIRATORY: No accessory muscle use. Clear to auscultation. Breath sounds equal bilaterally. GASTROINTESTINAL: Abdomen soft, mildly tender; mildly distended. Well healed midline scar. Well healed RUQ scar. MUSCULOSKELETAL: Extremities without clubbing, cyanosis, or edema. No obvious deformities. NEUROLOGICAL: Awake and alert. No obvious cranial nerve deficits. Motor grossly within normal limits. Five out of 5 muscle strength in the arms and legs. Normal speech. PSYCHIATRIC: Appropriate mood and affect; insight and judgment normal. <Radha Cordero - Last Filed: 09/16/17 17:29> Vital signs: Vital Signs 09/16/17 08:20 09/16/17 09:03 09/16/17 09:22 Temperature 97.8 F Pulse Rate 89 95 H Respiratory Rate 16 Blood Pressure 96/57 L 97/63 L Pulse Oximetry 98 99 98 09/16/17 13:00 09/16/17 16:00 Temperature 99.1 F Pulse Rate 93 H 93 H Respiratory Rate 18 16 Blood Pressure 106/73 94/55 L Pulse Oximetry 98 98 Intake & Output 09/15/17 09/16/17 09/16/17 18:59 06:59 18:59 Intake Total 500 / 500 Balance 500 / 500 Weight 30 kg Intake: IV 500 / 500 NS Inj 500 ML @ Wide Open IV. 500 / 500 SIG BOLUS ONE Rx#:[id number] - Routine Respiratory Exam Present: CTA bilaterally - Routine Abdominal Exam Present: soft, tenderness (diffusely), guarding, surgical scars (Multiple across abdomen) <Ruben Martinez - Last Filed: 09/16/17 18:28> Results - Labs 09/16/17 09:00 09/16/17 09:00 Abnormal lab results 09/16/17 09/16/17 09/16/17 Range/Units 09:00 09:00 09:45 WBC 13.2 H (4.0-11.0) th/mm3 Neut % (Auto) 89.1 H (16.0-70.0) % Lymph % (Auto) 6.3 L (9.0-44.0) % Neut # (Auto) 11.8 H (1.8-7.7) th/mm3 Lymph # (Auto) 0.8 L (1.0-4.8) th/mm3 POC Glucose (68-110) mg/dl Random Glucose 151 H (74-106) mg/dL Total Protein 8.4 H (6.4-8.2) g/dL Urine Ketones Trace H (Negative) mg/dL Urine Occult Blood Large H (Negative) Urine RBC 15-50 H (0-3) /hpf Ur Squamous Epith Cells Greater than 10 H (0-5) /hpf Amorphous Sediment Moderate H (None) /hpf Urine Mucus Moderate H (Occasional) /lpf 09/16/17 Range/Units 16:30 WBC (4.0-11.0) th/mm3 Neut % (Auto) (16.0-70.0) % Lymph % (Auto) (9.0-44.0) % Neut # (Auto) (1.8-7.7) th/mm3 Lymph # (Auto) (1.0-4.8) th/mm3 POC Glucose 121 H (68-110) mg/dl Random Glucose (74-106) mg/dL Total Protein (6.4-8.2) g/dL Urine Ketones (Negative) mg/dL Urine Occult Blood (Negative) Urine RBC (0-3) /hpf Ur Squamous Epith Cells (0-5) /hpf Amorphous Sediment (None) /hpf Urine Mucus (Occasional) /lpf Diabetes panel 09/16/17 Range/Units 09:00 Sodium 136 (136-145) meq/L Potassium 5.1 (3.5-5.1) meq/L Chloride 104 (98-107) meq/L Carbon Dioxide 26.4 (21.0-32.0) meq/L BUN 18 (7-18) mg/dL Creatinine 0.71 (0.50-1.00) mg/dL Calcium 9.0 (8.5-10.1) mg/dL AST 31 (15-37) U/L ALT 19 (10-53) U/L Alkaline Phosphatase 47 (45-117) U/L Total Protein 8.4 H (6.4-8.2) g/dL Albumin 4.3 (3.4-5.0) g/dL Calcium panel 09/16/17 Range/Units 09:00 Calcium 9.0 (8.5-10.1) mg/dL Albumin 4.3 (3.4-5.0) g/dL Pituitary panel 09/16/17 Range/Units 09:00 Sodium 136 (136-145) meq/L Potassium 5.1 (3.5-5.1) meq/L Chloride 104 (98-107) meq/L Carbon Dioxide 26.4 (21.0-32.0) meq/L BUN 18 (7-18) mg/dL Creatinine 0.71 (0.50-1.00) mg/dL Calcium 9.0 (8.5-10.1) mg/dL Adrenal panel 09/16/17 Range/Units 09:00 Sodium 136 (136-145) meq/L Potassium 5.1 (3.5-5.1) meq/L Chloride 104 (98-107) meq/L Carbon Dioxide 26.4 (21.0-32.0) meq/L BUN 18 (7-18) mg/dL Creatinine 0.71 (0.50-1.00) mg/dL Calcium 9.0 (8.5-10.1) mg/dL Total Bilirubin 0.5 (0.2-1.0) mg/dL AST 31 (15-37) U/L ALT 19 (10-53) U/L Alkaline Phosphatase 47 (45-117) U/L Total Protein 8.4 H (6.4-8.2) g/dL Albumin 4.3 (3.4-5.0) g/dL All other labs normal. - Imaging CT scan - abdomen: report reviewed <GilRadha - Last Filed: 09/16/17 17:29> - Labs 09/16/17 09:00 09/16/17 09:00 Abnormal lab results 09/16/17 09/16/17 09/16/17 Range/Units 09:00 09:00 09:45 WBC 13.2 H (4.0-11.0) th/mm3 Neut % (Auto) 89.1 H (16.0-70.0) % Lymph % (Auto) 6.3 L (9.0-44.0) % Neut # (Auto) 11.8 H (1.8-7.7) th/mm3 Lymph # (Auto) 0.8 L (1.0-4.8) th/mm3 POC Glucose (68-110) mg/dl Random Glucose 151 H (74-106) mg/dL Total Protein 8.4 H (6.4-8.2) g/dL Urine Ketones Trace H (Negative) mg/dL Urine Occult Blood Large H (Negative) Urine RBC 15-50 H (0-3) /hpf Ur Squamous Epith Cells Greater than 10 H (0-5) /hpf Amorphous Sediment Moderate H (None) /hpf Urine Mucus Moderate H (Occasional) /lpf 09/16/17 Range/Units 16:30 WBC (4.0-11.0) th/mm3 Neut % (Auto) (16.0-70.0) % Lymph % (Auto) (9.0-44.0) % Neut # (Auto) (1.8-7.7) th/mm3 Lymph # (Auto) (1.0-4.8) th/mm3 POC Glucose 121 H (68-110) mg/dl Random Glucose (74-106) mg/dL Total Protein (6.4-8.2) g/dL Urine Ketones (Negative) mg/dL Urine Occult Blood (Negative) Urine RBC (0-3) /hpf Ur Squamous Epith Cells (0-5) /hpf Amorphous Sediment (None) /hpf Urine Mucus (Occasional) /lpf Diabetes panel 09/16/17 Range/Units 09:00 Sodium 136 (136-145) meq/L Potassium 5.1 (3.5-5.1) meq/L Chloride 104 (98-107) meq/L Carbon Dioxide 26.4 (21.0-32.0) meq/L BUN 18 (7-18) mg/dL Creatinine 0.71 (0.50-1.00) mg/dL Calcium 9.0 (8.5-10.1) mg/dL AST 31 (15-37) U/L ALT 19 (10-53) U/L Alkaline Phosphatase 47 (45-117) U/L Total Protein 8.4 H (6.4-8.2) g/dL Albumin 4.3 (3.4-5.0) g/dL Calcium panel 09/16/17 Range/Units 09:00 Calcium 9.0 (8.5-10.1) mg/dL Albumin 4.3 (3.4-5.0) g/dL Pituitary panel 09/16/17 Range/Units 09:00 Sodium 136 (136-145) meq/L Potassium 5.1 (3.5-5.1) meq/L Chloride 104 (98-107) meq/L Carbon Dioxide 26.4 (21.0-32.0) meq/L BUN 18 (7-18) mg/dL Creatinine 0.71 (0.50-1.00) mg/dL Calcium 9.0 (8.5-10.1) mg/dL Adrenal panel 09/16/17 Range/Units 09:00 Sodium 136 (136-145) meq/L Potassium 5.1 (3.5-5.1) meq/L Chloride 104 (98-107) meq/L Carbon Dioxide 26.4 (21.0-32.0) meq/L BUN 18 (7-18) mg/dL Creatinine 0.71 (0.50-1.00) mg/dL Calcium 9.0 (8.5-10.1) mg/dL Total Bilirubin 0.5 (0.2-1.0) mg/dL AST 31 (15-37) U/L ALT 19 (10-53) U/L Alkaline Phosphatase 47 (45-117) U/L Total Protein 8.4 H (6.4-8.2) g/dL Albumin 4.3 (3.4-5.0) g/dL All other labs normal. - Imaging CT scan - abdomen: report reviewed, image reviewed <Ruben Martinez - Last Filed: 09/16/17 18:28> Assessment and Plan - Plan 37 year old female with abdominal pain; nausea; vomiting; CT findings of early SBO vs PSBO likely secondary to adhesions from prior surgeries -NPO; okay for ice chips sparingly -IVF -Pain control -Antiemetics -KUB in AM -If no improvement may require operation---will need to the move to the main campus -Will attempt non operative treatment at this time and continue to monitor -Thank you for this consult; We will continue to follow Discussed Condition With: Dr. Timoteo CUMMINGS team Ms. Lozano <Radha Cordero - Last Filed: 09/16/17 17:29> - Plan Partial SBO; as above Will recheck tomorrow and manage accordingly Discussed with patient <Ruben Martinez - Last Filed: 09/16/17 18:28>
[2017-09-16] MEDS: Morphine Sulfate Inj 2 MG/ML Vial IV.PUSH PRN (20:12)
[2017-09-17] MEDS: Insulin NovoLOG Aspart Correctional Sugar Inj SQ SCH ×5 (00:47→20:51)
[2017-09-17] MEDS: Sod Chloride 0.9% Inj 1,000 ML IV.CONT SCH ×3 (03:24→22:41)
--- NOTE | 2017-09-17 06:13 | XR ---
EXAM DATE: 09/17/2017 6:04 AM EDT AGE/SEX: 37 years / Female INDICATIONS: Abdominal pain, nausea for 4 days CLINICAL DATA: This is the patient's subsequent encounter. Patient reports that signs and symptoms h ave been present for 4 - 6 days and indicates a pain score of 6/10. MEDICAL/SURGICAL HISTORY: . Scoliosis Cholecystectomy. Garcia rods. COMPARISON: [facility], CT ABDOMEN & PELVIS W CONTRAST, 09/16/2017. . FINDINGS: Small bowel distention persists but is slightly improved in the interim relative to the CT. No gastri c distention. No free air seen. CONCLUSION: Modestly improved small bowel distention. Electronically signed by: Michael Ruiz MD 09/17/2017 6:12 AM EDT
[2017-09-17] MEDS: Morphine Sulfate Inj 2 MG/ML Vial IV.PUSH PRN ×2 (06:31→23:37)
[2017-09-17 06:42] LABS: Baso % (Auto) 0.2 % (0.0-2.0); Eos % (Auto) 0.5 % (0.0-4.0); Hematocrit 36.6 % (35.0-46.0); Hemoglobin 12.3 gm/dL (11.6-15.3); Lymph # (Auto) 0.5 th/mm3 (1.0-4.8); Lymph % (Auto) 5.4 % (9.0-44.0); Mean Corpuscular HGB Conc 33.6 % (32.0-36.0); Mean Corpuscular Hemoglobin 30.7 pg (27.0-34.0); Mean Corpuscular Volume 91.5 fL (80.0-100.0); Mean Platelet Volume 9.5 fL (7.0-11.0); Mono # (Auto) 1.4 th/mm3 (0.0-0.9); Neut % (Auto) 79.9 % (16.0-70.0); Platelet Count 234 th/mm3 (150-450); Red Blood Count 3.99 mil/mm3 (4.00-5.30); Red Cell Distribution Width 15.8 % (11.6-17.2); White Blood Count 9.9 th/mm3 (4.0-11.0)
[2017-09-17 06:50] LABS: Anion Gap 5 meq/L (5-15); Blood Urea Nitrogen 17 mg/dL (7-18); Calcium 8.1 mg/dL (8.5-10.1); Carbon Dioxide 31.2 meq/L (21.0-32.0); Chloride 107 meq/L (98-107); Glomerular Filtration Rate Greater Than 89 mL/min (>89); Glucose,Random 101 mg/dL (74-106); Potassium 4.1 meq/L (3.5-5.1); Sodium 143 meq/L (136-145)
[2017-09-17] MEDS ORDERED: Diatrizoate Meglum/Diatrizoate Sod Liq 120 ML Bottle (for RAD diag) PO ONE (08:20)
--- NOTE | 2017-09-17 08:34 | P.PNGS ---
<Radha Cordero - Last Filed: 09/17/17 08:28> Subjective Interval history: Had mild pain overnight and was resolved by pain medications; had 1 episode of emesis overnight but now feels better Physical Exam Vital signs: Vital Signs 09/16/17 09:03 09/16/17 09:22 09/16/17 13:00 Temperature Pulse Rate 95 H 93 H Respiratory Rate 18 Blood Pressure 97/63 L 106/73 Pulse Oximetry 99 98 98 09/16/17 16:00 09/16/17 20:00 09/17/17 00:00 Temperature 99.1 F 100.0 F H 97.9 F Pulse Rate 93 H 99 H 90 Respiratory Rate 16 20 16 Blood Pressure 94/55 L 103/59 L 95/55 L Pulse Oximetry 98 98 95 09/17/17 04:00 Temperature Pulse Rate 91 H Respiratory Rate Blood Pressure 90/58 L Pulse Oximetry Intake & Output 09/16/17 09/17/17 09/17/17 18:59 06:59 18:59 Intake Total 500 / 500 1000 / 1000 Balance 500 / 500 1000 / 1000 Weight 30 kg 29.8 kg Intake: IV 500 / 500 1000 / 1000 NS Inj 1,000 ML @ 100 mls/hr IV 1000 / 1000 .CONT .Q10H NICOLE Rx#:[id number] NS Inj 500 ML @ Wide Open IV. 500 / 500 SIG BOLUS ONE Rx#:[id number] Narrative: Alert and awake Cardio: RRR Resp: CTAB Abd: mildly distended; mildly tender throughout abdomen No edema Assessment and Plan - Plan 37 year old female with abdominal pain; nausea; vomiting; CT findings of early SBO vs PSBO likely secondary to adhesions from prior surgeries -NPO; okay for ice chips sparingly -SBFT today -Reviewed KUB---still with some distention -IVF -Pain control -Antiemetics -Based on clinical progression and results of SBFT further plans will be made but for now will continue nonoperative treatment at this time <Ruben Martinez - Last Filed: 09/17/17 15:12> Subjective Interval history: Pain much better later today Multiple BM's Physical Exam Vital signs: Vital Signs 09/16/17 16:00 09/16/17 20:00 09/17/17 00:00 Temperature 99.1 F 100.0 F H 97.9 F Pulse Rate 93 H 99 H 90 Respiratory Rate 16 20 16 Blood Pressure 94/55 L 103/59 L 95/55 L Pulse Oximetry 98 98 95 09/17/17 04:00 09/17/17 08:00 09/17/17 12:00 Temperature 98.6 F 99.2 F Pulse Rate 91 H 87 95 H Respiratory Rate 16 16 Blood Pressure 90/58 L 100/58 L 115/68 Pulse Oximetry 97 96 Intake & Output 09/16/17 09/17/17 09/17/17 18:59 06:59 18:59 Intake Total 500 / 500 1000 / 1000 Balance 500 / 500 1000 / 1000 Weight 30 kg 29.8 kg Intake: IV 500 / 500 1000 / 1000 NS Inj 1,000 ML @ 100 mls/hr IV 1000 / 1000 .CONT .Q10H NICOLE Rx#:[id number] NS Inj 500 ML @ Wide Open IV. 500 / 500 SIG BOLUS ONE Rx#:[id number] Assessment and Plan - Plan SBFT shows contrast all the way to colon, although small bowel still dilated Start on clears Advance diet in AM if tolerating liquids - Attending Attestation The exam, history, and the medical decision-making described in the above note were completed with the assistance of the mid-level provider. I reviewed and agree with the findings presented. I attest that I had a cygi-[id number] encounter with the patient on the same day, and personally performed and documented my assessment and findings in the medical record.
--- NOTE | 2017-09-17 08:44 | P.PN ---
Subjective Interval history: 37-year-old female who is seen in follow-up for partial/early bowel obstruction. Patient states that she had an episode of nausea vomiting this morning. Follow-up x-ray indicates mild improvement. Patient denying any abdominal pain. She has not had any bowel movement. Vital signs are stable. Patient had a low-grade temperature last evening at 100.0 Physical Exam Vital signs: Vital Signs 09/16/17 09:03 09/16/17 09:22 09/16/17 13:00 Temperature Pulse Rate 95 H 93 H Respiratory Rate 18 Blood Pressure 97/63 L 106/73 Pulse Oximetry 99 98 98 09/16/17 16:00 09/16/17 20:00 09/17/17 00:00 Temperature 99.1 F 100.0 F H 97.9 F Pulse Rate 93 H 99 H 90 Respiratory Rate 16 20 16 Blood Pressure 94/55 L 103/59 L 95/55 L Pulse Oximetry 98 98 95 09/17/17 04:00 09/17/17 08:00 Temperature 98.6 F Pulse Rate 91 H 87 Respiratory Rate 16 Blood Pressure 90/58 L 100/58 L Pulse Oximetry 97 Intake & Output 09/16/17 09/17/17 09/17/17 18:59 06:59 18:59 Intake Total 500 / 500 1000 / 1000 Balance 500 / 500 1000 / 1000 Weight 30 kg 29.8 kg Intake: IV 500 / 500 1000 / 1000 NS Inj 1,000 ML @ 100 mls/hr IV 1000 / 1000 .CONT .Q10H [facility] Rx#:[id number] NS Inj 500 ML @ Wide Open IV. 500 / 500 SIG BOLUS ONE Rx#:[id number] Narrative: GENERAL: Well-developed, frail and cachectic, in no acute distress. alert and orientated HEENT: Head is normocephalic without any lesions or masses noted. Facial features are symmetric. Eyes: Extraocular muscles are intact. Conjunctivae were clear. NECK: Supple without any masses. Trachea midline no deviation. No JVD, CARDIAC: Regular rhythm, regular rate. S1/S2 are heard. No murmurs gallops or rubs. LUNGS: Clear to auscultation bilaterally. No wheeze, rhonchi or rales. No use of accessory muscles on inspiration or expiration. ABDOMEN: Soft, nontender. Nondistended. Bowel sounds heard in all 4 quadrants. No organomegaly or masses. Negative rebound, negative guarding EXTREMITIES: No edema, pulses are equal bilaterally. No cyanosis or clubbing NEUROLOGY: Mood and affect appear appropriate. Cranial nerves II through XII grossly intact. Moving all extremities, speech is clear Results - Labs CBC & Chem 7: 09/17/17 05:40 09/17/17 05:40 Laboratory Results - last 24 hr 09/16/17 09/16/17 09/16/17 09:00 09:00 09:45 CBC w Diff Auto diff final WBC 13.2 H RBC 4.55 Hgb 13.9 Hct 43.1 MCV 94.8 MCH 30.4 MCHC 32.1 RDW 15.5 Plt Count 287 MPV 8.6 Neut % (Auto) 89.1 H Lymph % (Auto) 6.3 L [place] % (Auto) 4.0 Eos % (Auto) 0.2 Baso % (Auto) 0.4 Neut # (Auto) 11.8 H Lymph # (Auto) 0.8 L [place] # (Auto) 0.5 Eos # (Auto) 0.0 Baso # (Auto) 0.1 WBC Differential . Differential Comment . Sodium 136 Potassium 5.1 Chloride 104 Carbon Dioxide 26.4 Anion Gap 6 BUN 18 Creatinine 0.71 Estimated GFR Greater than 89 POC Glucose Random Glucose 151 H Calcium 9.0 Total Bilirubin 0.5 AST 31 ALT 19 Alkaline Phosphatase 47 Total Protein 8.4 H Albumin 4.3 Lipase 80 Ur Collection Type Clean catch Urine Color Yellow Urine Clarity Clear Urine pH 6.0 Ur Specific [place] 1.025 Urine Protein Trace Urine Glucose (UA) Negative Urine Ketones Trace H Urine Occult Blood Large H Urine Nitrate Negative Urine Bilirubin Negative Urine Urobilinogen 0.2 Ur Leukocyte Esterase Negative Urine RBC 15-50 H Urine WBC 0-5 Ur Squamous Epith Cells Greater than 10 H Amorphous Sediment Moderate H Urine Mucus Moderate H Micro UA Comment Culture not ind Urine Culture Comments Culture not ind Urine Collection Time 945 09/16/17 09/16/17 09/17/17 16:30 21:11 05:40 CBC w Diff Auto diff final WBC 9.9 RBC 3.99 L Hgb 12.3 Hct 36.6 MCV 91.5 MCH 30.7 MCHC 33.6 RDW 15.8 Plt Count 234 MPV 9.5 Neut % (Auto) 79.9 H Lymph % (Auto) 5.4 L [place] % (Auto) 14.0 H Eos % (Auto) 0.5 Baso % (Auto) 0.2 Neut # (Auto) 8.0 H Lymph # (Auto) 0.5 L [place] # (Auto) 1.4 H Eos # (Auto) 0.0 Baso # (Auto) 0.0 WBC Differential . Differential Comment . Sodium Potassium Chloride Carbon Dioxide Anion Gap BUN Creatinine Estimated GFR POC Glucose 121 H 102 Random Glucose Calcium Total Bilirubin AST ALT Alkaline Phosphatase Total Protein Albumin Lipase Ur Collection Type Urine Color Urine Clarity Urine pH Ur Specific [place] Urine Protein Urine Glucose (UA) Urine Ketones Urine Occult Blood Urine Nitrate Urine Bilirubin Urine Urobilinogen Ur Leukocyte Esterase Urine RBC Urine WBC Ur Squamous Epith Cells Amorphous Sediment Urine Mucus Micro UA Comment Urine Culture Comments Urine Collection Time 09/17/17 09/17/17 05:40 07:50 CBC w Diff WBC RBC Hgb Hct MCV MCH MCHC RDW Plt Count MPV Neut % (Auto) Lymph % (Auto) [place] % (Auto) Eos % (Auto) Baso % (Auto) Neut # (Auto) Lymph # (Auto) [place] # (Auto) Eos # (Auto) Baso # (Auto) WBC Differential Differential Comment Sodium 143 Potassium 4.1 D Chloride 107 Carbon Dioxide 31.2 Anion Gap 5 BUN 17 Creatinine 0.63 Estimated GFR Greater than 89 POC Glucose 91 Random Glucose 101 Calcium 8.1 L D Total Bilirubin AST ALT Alkaline Phosphatase Total Protein Albumin Lipase Ur Collection Type Urine Color Urine Clarity Urine pH Ur Specific [place] Urine Protein Urine Glucose (UA) Urine Ketones Urine Occult Blood Urine Nitrate Urine Bilirubin Urine Urobilinogen Ur Leukocyte Esterase Urine RBC Urine WBC Ur Squamous Epith Cells Amorphous Sediment Urine Mucus Micro UA Comment Urine Culture Comments Urine Collection Time - Imaging Impressions Abdomen/Pelvis CT 09/16/17 08:48 CONCLUSION: 1. Multiple loops of borderline dilated small bowel with multiple air-fluid levels. The findings are of concern for early or partial small bowel obstruction. 2. Moderate to severe scoliosis and postsurgical changes. 3. Apparent small leiomyoma in the uterus. There is free fluid in the cul-de- sac which can be a physiologic finding in a female patient this age. Abdomen X-Ray 09/17/17 06:00 CONCLUSION: Modestly improved small bowel distention. Assessment and Plan - Assessment (1) Small bowel obstruction Code(s): K56.609 - Unspecified intestinal obstruction, unspecified as to partial versus complete obstruction Status: Acute (2) Systemic inflammatory response syndrome Code(s): R65.10 - Systemic inflammatory response syndrome (SIRS) of non- infectious origin without acute organ dysfunction Status: Acute (3) Leukocytosis Code(s): D72.829 - Elevated white blood cell count, unspecified Status: Acute (4) Hyperglycemia Code(s): R73.9 - Hyperglycemia, unspecified Status: Acute - Plan Early or partial small bowel obstruction -Patient does have history of abdominal surgeries with childhood gastroschisis, cholecystectomy -CT scan of the abdomen does show multiple loops of borderline dilated small bowel with multiple air-fluid levels findings are concerning for early or partial small bowel obstruction -Follow-up abdominal x-ray shows modestly improved small bowel distention -Continue to keep patient n.p.o., continue IV fluids, bowel rest -Zofran as needed for nausea or vomiting -Morphine for pain control -General surgery consulted and is following the patient -Small bowel follow-through Systemic inflammatory response syndrome, resolved -Likely secondary to small bowel obstruction -Patient presented with leukocytosis, tachycardia, no infectious source has been identified, patient has had bowel obstruction -Urinalysis is unremarkable for any infection -Blood cultures are pending -Continue IV fluids Leukocytosis, resolved -Likely etiology could be from concentration. No signs of infection at this time -Follow CBC DVT prevention -Sequential compression devices
--- NOTE | 2017-09-17 11:22 | FL ---
EXAM DATE: 09/17/2017 11:04 AM EDT AGE/SEX: 37 years / Female INDICATIONS: Nausea and vomiting. Evaluate for small bowel obstruction CLINICAL DATA: This is the patient's subsequent encounter. Patient reports that signs and symptoms h ave been present for 4 - 6 days and indicates a pain score of 5/10. MEDICAL/SURGICAL HISTORY: . Scoliosis, Garcia rods, Congenital diaphragmatic hernia. Yenny cystectomy. COMPARISON: No prior exams available for comparison. FLUORO TIME: 0 IMAGE COUNT: 9 CONTRAST: FINDINGS: Single contrast Gastrografin small bowel series demonstrates distended loops of small bowel maximum d iameter of 4.9 cm. Contrast eventually gets into the colon. There is no evidence for free intraperito ramandeep air for technique. CONCLUSION: Distended loops of small bowel and contrast eventually makes it to the colon could be an ileus, howev er partial small bowel obstruction is not excluded. Electronically signed by: Kojo Gutiérrez MD 09/17/2017 11:21 AM EDT
[2017-09-17 16:21] LABS: Hemoglobin A1c 5.4 % (4.3-6.0)
--- NOTE | 2017-09-18 08:12 | P.PN ---
Subjective Interval history: 37-year-old female who is seen, ileus. Patient states that she has not had any recurrent nausea or vomiting. However she developed the same abdominal pain last night that she presented the hospital with. She is tolerating liquids, she is having a bowel movement. However abdomen is more distended today than it was yesterday. Vital signs are stable, patient remains afebrile. Physical Exam Vital signs: Vital Signs 09/17/17 12:00 09/17/17 16:00 09/17/17 20:00 Temperature 99.2 F 98.1 F 97.4 F L Pulse Rate 95 H 103 H 90 Respiratory Rate 16 16 18 Blood Pressure 115/68 95/64 L 98/57 L Pulse Oximetry 96 97 99 09/18/17 00:00 09/18/17 00:34 09/18/17 07:28 Temperature 97.5 F L 96.8 F L Pulse Rate 90 86 Respiratory Rate 18 15 20 Blood Pressure 89/55 L 90/53 L Pulse Oximetry 96 94 L Intake & Output 09/17/17 09/18/17 09/18/17 18:59 06:59 18:59 Intake Total 480 / 480 1999 Balance 480 / 480 1999 Weight 30.7 kg Intake: IV 1999 NS Inj 1,000 ML @ 100 mls/hr IV 1999 .CONT .Q10H [facility] Rx#:[id number] Oral 480 / 480 Other: # Voids 4 # Bowel Movements 0 Narrative: GENERAL: Well-developed, frail and cachectic, in no acute distress. alert and orientated HEENT: Head is normocephalic without any lesions or masses noted. Facial features are symmetric. Eyes: Extraocular muscles are intact. Conjunctivae were clear. NECK: Supple without any masses. Trachea midline no deviation. No JVD, CARDIAC: Regular rhythm, regular rate. S1/S2 are heard. No murmurs gallops or rubs. LUNGS: Clear to auscultation bilaterally. No wheeze, rhonchi or rales. No use of accessory muscles on inspiration or expiration. ABDOMEN: Soft, mild tenderness noted throughout entire abdomen. Abdomen more distended today than it was yesterday. Bowel sounds heard in all 4 quadrants. No organomegaly or masses. Negative rebound, negative guarding EXTREMITIES: No edema, pulses are equal bilaterally. No cyanosis or clubbing NEUROLOGY: Mood and affect appear appropriate. Cranial nerves II through XII grossly intact. Moving all extremities, speech is clear Results - Labs CBC & Chem 7: 09/17/17 05:40 09/17/17 05:40 Laboratory Results - last 24 hr 09/16/17 09/17/17 09/17/17 16:40 07:50 13:08 POC Glucose 91 76 Hemoglobin A1c 5.4 09/17/17 09/17/17 17:40 20:46 POC Glucose 92 100 Hemoglobin A1c Microbiology 09/16/17 16:35 Blood - Peripheral Aerobic Blood Culture - Preliminary No growth in 1 day 09/16/17 16:35 Blood - Peripheral Anaerobic Blood Culture - Preliminary No growth in 1 day 09/16/17 16:40 Blood - Peripheral Aerobic Blood Culture - Preliminary No growth in 1 day 09/16/17 16:40 Blood - Peripheral Anaerobic Blood Culture - Preliminary No growth in 1 day - Imaging Impressions Small Bowel X-Ray 09/17/17 00:00 CONCLUSION: Distended loops of small bowel and contrast eventually makes it to the colon could be an ileus, however partial small bowel obstruction is not excluded. Assessment and Plan - Assessment (1) Small bowel obstruction Code(s): K56.609 - Unspecified intestinal obstruction, unspecified as to partial versus complete obstruction Status: Acute (2) Systemic inflammatory response syndrome Code(s): R65.10 - Systemic inflammatory response syndrome (SIRS) of non- infectious origin without acute organ dysfunction Status: Acute (3) Leukocytosis Code(s): D72.829 - Elevated white blood cell count, unspecified Status: Acute (4) Hyperglycemia Code(s): R73.9 - Hyperglycemia, unspecified Status: Resolved - Plan Early or partial small bowel obstruction -Patient does have history of abdominal surgeries with childhood gastroschisis, cholecystectomy -CT scan of the abdomen does show multiple loops of borderline dilated small bowel with multiple air-fluid levels findings are concerning for early or partial small bowel obstruction -Small bowel follow-through indicates: Distended loops of small bowel and contrast eventually makes it to the colon could be an ileus, however partial small bowel obstruction is not excluded. -Obtain abdominal x-ray this morning -Patient on clear liquid diet, continue to advance per general surgery -Zofran as needed for nausea or vomiting -Morphine for pain control -General surgery consulted and is following the patient. Discussed with general surgery if patient has another episode of vomiting that she will need to be transferred to the main hospital for surgical intervention. Still hopeful that patient can be managed by conservative measures. Systemic inflammatory response syndrome, resolved -Likely secondary to small bowel obstruction -Patient presented with leukocytosis, tachycardia, no infectious source has been identified, patient has had bowel obstruction -Urinalysis is unremarkable for any infection -Blood cultures are negative for 2 days -Continue IV fluids Leukocytosis, resolved -Likely etiology could be from concentration. No signs of infection at this time -Follow CBC Hyperglycemia -Patient was initially started on Accu-Cheks with sliding scale insulin which has been discontinued -Hemoglobin A1c 5.4 DVT prevention -Sequential compression devices
--- NOTE | 2017-09-18 08:57 | XR ---
EXAM DATE: 09/18/2017 8:48 AM EDT AGE/SEX: 37 years / Female INDICATIONS: Abdomen pain, ileus CLINICAL DATA: This is the patient's subsequent encounter. Patient reports that signs and symptoms h ave been present for 1 day and indicates a pain score of 4/10. MEDICAL/SURGICAL HISTORY: . Scoliosis . Garcia rods, Congenital diaphragmatic hernia. Cho lecystectomy COMPARISON: [facility], SMALL BOWEL W GASTROGRAFIN, 09/17/2017. . FINDINGS: Supine and upright views of the abdomen were performed. The dilated small bowel loops more notably in the right abdomen with air-fluid level again seen. There is some residual contrast in the colon. No abnormal masses, calcifications, or organomegaly is seen. The visualized lower lungs are clear. No ev idence of free intraperitoneal gas. Scoliotic rods in the thoracolumbar spine. CONCLUSION: Dilated small bowel loops again seen. Residual contrast in the colon. Electronically signed by: Alex Shukla MD 09/18/2017 8:56 AM EDT
--- NOTE | 2017-09-18 09:53 | P.PN ---
Subjective Interval history: Had a bit more pain last night, but multiple bowel movements Doing ok with clears Physical Exam Vital signs: Vital Signs 09/17/17 12:00 09/17/17 16:00 09/17/17 20:00 Temperature 99.2 F 98.1 F 97.4 F L Pulse Rate 95 H 103 H 90 Respiratory Rate 16 16 18 Blood Pressure 115/68 95/64 L 98/57 L Pulse Oximetry 96 97 99 09/18/17 00:00 09/18/17 00:34 09/18/17 07:28 Temperature 97.5 F L 96.8 F L Pulse Rate 90 86 Respiratory Rate 18 15 20 Blood Pressure 89/55 L 90/53 L Pulse Oximetry 96 94 L Intake & Output 09/17/17 09/18/17 09/18/17 18:59 06:59 18:59 Intake Total 480 / 480 1999 Balance 480 / 480 1999 Weight 30.7 kg Intake: IV 1999 NS Inj 1,000 ML @ 100 mls/hr IV 1999 .CONT .Q10H [facility] Rx#:[id number] Oral 480 / 480 Other: # Voids 4 # Bowel Movements 0 - Constitutional no acute distress - Routine Respiratory Exam Present: CTA bilaterally - Routine Cardiovascular Exam Present: RRR - Routine Abdominal Exam Present: soft, distended Comments: Nontender today Results - Labs CBC & Chem 7: 09/17/17 05:40 09/17/17 05:40 Laboratory Results - last 24 hr 09/16/17 09/17/17 09/17/17 16:40 13:08 17:40 POC Glucose 76 92 Hemoglobin A1c 5.4 09/17/17 09/18/17 20:46 08:07 POC Glucose 100 99 Hemoglobin A1c Microbiology 09/16/17 16:35 Blood - Peripheral Aerobic Blood Culture - Preliminary No growth in 1 day 09/16/17 16:35 Blood - Peripheral Anaerobic Blood Culture - Preliminary No growth in 1 day 09/16/17 16:40 Blood - Peripheral Aerobic Blood Culture - Preliminary No growth in 1 day 09/16/17 16:40 Blood - Peripheral Anaerobic Blood Culture - Preliminary No growth in 1 day - Imaging Impressions Small Bowel X-Ray 09/17/17 00:00 CONCLUSION: Distended loops of small bowel and contrast eventually makes it to the colon could be an ileus, however partial small bowel obstruction is not excluded. Abdomen X-Ray 09/18/17 08:07 CONCLUSION: Dilated small bowel loops again seen. Residual contrast in the colon. Assessment and Plan - Assessment (1) Small bowel obstruction Code(s): K56.609 - Unspecified intestinal obstruction, unspecified as to partial versus complete obstruction Status: Acute Plan: Continue clear liquids for now Will need to transfer to main campus if she does not progress or has emesis/ increased pain.. - Plan Discussed Condition With: Fransisco Hughes MD Patient
[2017-09-18] MEDS: Morphine Sulfate Inj 2 MG/ML Vial IV.PUSH PRN (19:04)
[2017-09-18] MEDS: Sod Chloride 0.9% Inj 1,000 ML IV.CONT SCH (19:07)
[2017-09-19] MEDS: Sod Chloride 0.9% Inj 1,000 ML IV.CONT SCH ×5 (00:46→23:10)
--- NOTE | 2017-09-19 08:16 | P.PN ---
Subjective Interval history: 37-year-old female who is seen in follow-up today for small bowel obstruction, ileus. Patient has not had any recurrent episodes of nausea or vomiting. Patient states that she has not had any significant abdominal pain requiring any medication. She is asking if she still has remained on a clear liquid diet. I reassured her that would probably need a plate safe at this time and keep her on clear liquid diet until surgery can advance the diet. She is passing a lot more gas, however she has not had any significant bowel movement. Vital signs are stable, patient remains afebrile Physical Exam Vital signs: Vital Signs 09/18/17 11:30 09/18/17 15:06 09/18/17 20:00 Temperature 100 F H 99.8 F H 99.1 F Pulse Rate 91 H 88 95 H Respiratory Rate 20 20 16 Blood Pressure 90/57 L 90/58 L 99/64 L Pulse Oximetry 96 95 95 09/19/17 00:00 09/19/17 07:37 Temperature 96.9 F L 97.2 F L Pulse Rate 83 76 Respiratory Rate 20 20 Blood Pressure 99/54 L 95/55 L Pulse Oximetry 95 98 Intake & Output 09/18/17 09/19/17 09/19/17 18:59 06:59 18:59 Intake Total 1840 / 1840 1240 / 1240 Balance 1840 / 1840 1240 / 1240 Weight 30.8 kg Intake: IV 1000 / 1000 1000 / 1000 NS Inj 1,000 ML @ 100 mls/hr IV 1000 / 1000 1000 / 1000 .CONT .Q10H [facility] Rx#:[id number] Oral 840 / 840 240 / 240 Other: # Voids 4 1 # Bowel Movements 1 Narrative: GENERAL: Well-developed, frail and cachectic, in no acute distress. alert and orientated HEENT: Head is normocephalic without any lesions or masses noted. Facial features are symmetric. Eyes: Extraocular muscles are intact. Conjunctivae were clear. NECK: Supple without any masses. Trachea midline no deviation. No JVD, CARDIAC: Regular rhythm, regular rate. S1/S2 are heard. No murmurs gallops or rubs. LUNGS: Clear to auscultation bilaterally. No wheeze, rhonchi or rales. No use of accessory muscles on inspiration or expiration. ABDOMEN: Soft, nontender, abdomen is less distended today than it was yesterday. Bowel sounds heard in all 4 quadrants. No organomegaly or masses. Negative rebound, negative guarding EXTREMITIES: No edema, pulses are equal bilaterally. No cyanosis or clubbing NEUROLOGY: Mood and affect appear appropriate. Cranial nerves II through XII grossly intact. Moving all extremities, speech is clear Results - Labs CBC & Chem 7: 09/17/17 05:40 09/17/17 05:40 Laboratory Results - last 24 hr 09/18/17 08:07 POC Glucose 99 Microbiology 09/16/17 16:35 Blood - Peripheral Aerobic Blood Culture - Preliminary No growth in 2 days 09/16/17 16:35 Blood - Peripheral Anaerobic Blood Culture - Preliminary No growth in 2 days 09/16/17 16:40 Blood - Peripheral Aerobic Blood Culture - Preliminary No growth in 2 days 09/16/17 16:40 Blood - Peripheral Anaerobic Blood Culture - Preliminary No growth in 2 days - Imaging Impressions Abdomen X-Ray 09/18/17 08:07 CONCLUSION: Dilated small bowel loops again seen. Residual contrast in the colon. Assessment and Plan - Assessment (1) Small bowel obstruction Code(s): K56.609 - Unspecified intestinal obstruction, unspecified as to partial versus complete obstruction Status: Acute (2) Systemic inflammatory response syndrome Code(s): R65.10 - Systemic inflammatory response syndrome (SIRS) of non- infectious origin without acute organ dysfunction Status: Acute (3) Leukocytosis Code(s): D72.829 - Elevated white blood cell count, unspecified Status: Acute (4) Hyperglycemia Code(s): R73.9 - Hyperglycemia, unspecified Status: Resolved - Plan Early or partial small bowel obstruction -Patient does have history of abdominal surgeries with childhood gastroschisis, cholecystectomy -CT scan of the abdomen does show multiple loops of borderline dilated small bowel with multiple air-fluid levels findings are concerning for early or partial small bowel obstruction -Small bowel follow-through indicates: Distended loops of small bowel and contrast eventually makes it to the colon could be an ileus, however partial small bowel obstruction is not excluded. -Continue conservative measures at this time. If patient has any recurrent nausea vomiting, she will likely need to be transferred to the main for surgical intervention. -Patient on clear liquid diet, continue to advance per general surgery -Zofran as needed for nausea or vomiting -Morphine for pain control -General surgery consulted and is following the patient. Systemic inflammatory response syndrome, resolved -Likely secondary to small bowel obstruction -Patient presented with leukocytosis, tachycardia, no infectious source has been identified, patient has had bowel obstruction -Urinalysis is unremarkable for any infection -Blood cultures are negative for 2 days -Continue IV fluids Leukocytosis, resolved -Likely etiology could be from concentration. No signs of infection at this time -Follow CBC Hyperglycemia -Patient was initially started on Accu-Cheks with sliding scale insulin which has been discontinued -Hemoglobin A1c 5.4 DVT prevention -Sequential compression devices
--- NOTE | 2017-09-19 12:50 | P.PNGS ---
Subjective Patient reports: still having pain (, feels worse this afternoon, small bm, small flatus) Physical Exam Vital signs: Vital Signs 09/18/17 15:06 09/18/17 20:00 09/19/17 00:00 Temperature 99.8 F H 99.1 F 96.9 F L Pulse Rate 88 95 H 83 Respiratory Rate 20 16 20 Blood Pressure 90/58 L 99/64 L 99/54 L Pulse Oximetry 95 95 95 09/19/17 07:37 09/19/17 11:08 Temperature 97.2 F L 98.3 F Pulse Rate 76 80 Respiratory Rate 20 20 Blood Pressure 95/55 L 103/54 L Pulse Oximetry 98 97 Intake & Output 09/18/17 09/19/17 09/19/17 18:59 06:59 18:59 Intake Total 1840 / 1840 1240 / 1240 Balance 1840 / 1840 1240 / 1240 Weight 30.8 kg Intake: IV 1000 / 1000 1000 / 1000 NS Inj 1,000 ML @ 100 mls/hr IV 1000 / 1000 1000 / 1000 .CONT .Q10H [facility] Rx#:[id number] Oral 840 / 840 240 / 240 Other: # Voids 4 1 # Bowel Movements 1 - Routine Abdominal Exam Present: soft, distended Assessment and Plan - Assessment (1) Small bowel obstruction Code(s): K56.609 - Unspecified intestinal obstruction, unspecified as to partial versus complete obstruction Status: Acute Plan: Partial SBO Pt feels worse with clear liquid PLAN AXR in am abdominal exams keep clears may need transfer to [facility] for surgery if no improvement in 24 hours
[2017-09-19] MEDS ORDERED: Baclofen 10 MG Tablet PO PRN (14:48)
[2017-09-19] MEDS: Morphine Sulfate Inj 2 MG/ML Vial IV.PUSH PRN (19:39)
--- NOTE | 2017-09-20 08:43 | P.PN ---
Subjective Interval history: 37-year-old male who is seen in follow-up today for small bowel obstruction/ileus. Patient states that she still passing gas. Have a bowel movements. Abdominal pain appears to be improved today. Diet has been advanced per surgery. Vital signs remained stable, patient is afebrile. Physical Exam Vital signs: Vital Signs 09/19/17 11:08 09/19/17 15:13 09/19/17 20:00 Temperature 98.3 F 98 F 97.1 F L Pulse Rate 80 77 80 Respiratory Rate 20 20 18 Blood Pressure 103/54 L 100/59 L 105/53 L Pulse Oximetry 97 98 96 09/20/17 00:00 Temperature 97.0 F L Pulse Rate 77 Respiratory Rate 18 Blood Pressure 95/56 L Pulse Oximetry 94 L Intake & Output 09/19/17 09/20/17 09/20/17 18:59 06:59 18:59 Intake Total 1840 / 1840 1000 / 1000 Balance 1840 / 1840 1000 / 1000 Weight 32.9 kg Intake: IV 1000 / 1000 1000 / 1000 NS Inj 1,000 ML @ 100 mls/hr IV 1000 / 1000 1000 / 1000 .CONT .Q10H NICOLE Rx#:[id number] Oral 840 / 840 Other: # Voids 4 Narrative: GENERAL: Well-developed, frail and cachectic, in no acute distress. alert and orientated HEENT: Head is normocephalic without any lesions or masses noted. Facial features are symmetric. Eyes: Extraocular muscles are intact. Conjunctivae were clear. NECK: Supple without any masses. Trachea midline no deviation. No JVD, CARDIAC: Regular rhythm, regular rate. S1/S2 are heard. No murmurs gallops or rubs. LUNGS: Clear to auscultation bilaterally. No wheeze, rhonchi or rales. No use of accessory muscles on inspiration or expiration. ABDOMEN: Soft, nontender, no distention today. Bowel sounds heard in all 4 quadrants. No organomegaly or masses. Negative rebound, negative guarding EXTREMITIES: No edema, pulses are equal bilaterally. No cyanosis or clubbing NEUROLOGY: Mood and affect appear appropriate. Cranial nerves II through XII grossly intact. Moving all extremities, speech is clear Results - Labs CBC & Chem 7: 09/17/17 05:40 09/17/17 05:40 Microbiology 09/16/17 16:35 Blood - Peripheral Aerobic Blood Culture - Preliminary No growth in 3 days 09/16/17 16:35 Blood - Peripheral Anaerobic Blood Culture - Preliminary No growth in 3 days 09/16/17 16:40 Blood - Peripheral Aerobic Blood Culture - Preliminary No growth in 3 days 09/16/17 16:40 Blood - Peripheral Anaerobic Blood Culture - Preliminary No growth in 3 days Assessment and Plan - Assessment (1) Small bowel obstruction Code(s): K56.609 - Unspecified intestinal obstruction, unspecified as to partial versus complete obstruction Status: Acute (2) Systemic inflammatory response syndrome Code(s): R65.10 - Systemic inflammatory response syndrome (SIRS) of non- infectious origin without acute organ dysfunction Status: Acute (3) Leukocytosis Code(s): D72.829 - Elevated white blood cell count, unspecified Status: Acute (4) Hyperglycemia Code(s): R73.9 - Hyperglycemia, unspecified Status: Resolved - Plan Early or partial small bowel obstruction -Patient does have history of abdominal surgeries with childhood gastroschisis, cholecystectomy -CT scan of the abdomen does show multiple loops of borderline dilated small bowel with multiple air-fluid levels findings are concerning for early or partial small bowel obstruction -Small bowel follow-through indicates: Distended loops of small bowel and contrast eventually makes it to the colon could be an ileus, however partial small bowel obstruction is not excluded. -Continue conservative measures at this time. If patient has any recurrent nausea vomiting, she will likely need to be transferred to the [facility] for surgical intervention. -Continue to advance diet per general surgery -Zofran as needed for nausea or vomiting -Morphine for pain control -Encouraged ambulation in the denis -General surgery consulted and is following the patient. Systemic inflammatory response syndrome, resolved -Likely secondary to small bowel obstruction -Patient presented with leukocytosis, tachycardia, no infectious source has been identified, patient has had bowel obstruction -Urinalysis is unremarkable for any infection -Blood cultures are negative for 2 days -Continue IV fluids Leukocytosis, resolved -Likely etiology could be from concentration. No signs of infection at this time -Follow CBC Hyperglycemia -Patient was initially started on Accu-Cheks with sliding scale insulin which has been discontinued -Hemoglobin A1c 5.4 DVT prevention -Sequential compression devices
--- NOTE | 2017-09-20 09:29 | P.PNGS ---
<Radha Cordero - Last Filed: 09/20/17 14:36> Subjective Interval history: Resting in bed; feels less pain in abdomen but still distended; wants to try full liquids Physical Exam Vital signs: Vital Signs 09/19/17 11:08 09/19/17 15:13 09/19/17 20:00 Temperature 98.3 F 98 F 97.1 F L Pulse Rate 80 77 80 Respiratory Rate 20 20 18 Blood Pressure 103/54 L 100/59 L 105/53 L Pulse Oximetry 97 98 96 09/20/17 00:00 09/20/17 08:00 Temperature 97.0 F L 97.1 F L Pulse Rate 77 75 Respiratory Rate 18 20 Blood Pressure 95/56 L 104/60 Pulse Oximetry 94 L 99 Intake & Output 09/19/17 09/20/17 09/20/17 18:59 06:59 18:59 Intake Total 1840 / 1840 1000 / 1000 Balance 1840 / 1840 1000 / 1000 Weight 32.9 kg Intake: IV 1000 / 1000 1000 / 1000 NS Inj 1,000 ML @ 100 mls/hr IV 1000 / 1000 1000 / 1000 .CONT .Q10H NICOLE Rx#:[id number] Oral 840 / 840 Other: # Voids 4 Narrative: Alert and awake Cardio: RRR Resp: CTAB Abd: mildly tender in RLQ with palpation; mildly distended Assessment and Plan - Assessment (1) Small bowel obstruction Code(s): K56.609 - Unspecified intestinal obstruction, unspecified as to partial versus complete obstruction Status: Acute Plan: Partial SBO Pt feels worse with clear liquid PLAN AXR in am abdominal exams keep clears may need transfer to main for surgery if no improvement in 24 hours - Plan 37 year old female with abdominal pain; nausea; vomiting; CT findings of early SBO vs PSBO likely secondary to adhesions from prior surgeries -Advance to full liquids -KUB pending -IVF -Pain control -Antiemetics -If patient fails trial of full liquids will plan to transfer to the main otherwise will continue non operative treatment <Ruben Martinez - Last Filed: 09/21/17 07:18> Physical Exam Vital signs: Vital Signs 09/19/17 15:13 09/19/17 20:00 09/20/17 00:00 Temperature 98 F 97.1 F L 97.0 F L Pulse Rate 77 80 77 Respiratory Rate 20 18 18 Blood Pressure 100/59 L 105/53 L 95/56 L Pulse Oximetry 98 96 94 L 09/20/17 08:00 Temperature 97.1 F L Pulse Rate 75 Respiratory Rate 20 Blood Pressure 104/60 Pulse Oximetry 99 Intake & Output 09/19/17 09/20/17 09/20/17 18:59 06:59 18:59 Intake Total 1840 / 1840 1000 / 1000 1480 / 1480 Balance 1840 / 1840 1000 / 1000 1480 / 1480 Weight 32.9 kg Intake: IV 1000 / 1000 1000 / 1000 1000 / 1000 NS Inj 1,000 ML @ 100 mls/hr IV 1000 / 1000 1000 / 1000 1000 / 1000 .CONT .Q10H NICOLE Rx#:[id number] Oral 840 / 840 480 / 480 Other: # Voids 4 - Routine Abdominal Exam Present: soft, distended (Less than 7) Assessment and Plan - Assessment (1) Small bowel obstruction Code(s): K56.609 - Unspecified intestinal obstruction, unspecified as to partial versus complete obstruction Status: Acute Plan: Feeling better with less distention since this AM Recheck KUB today Try regular diet; if she fails, transfer to main hospital - Plan Discussed with Fransisco Mishra; will try regular diet now
--- NOTE | 2017-09-20 09:40 | XR ---
EXAM DATE: 09/20/2017 9:36 AM EDT AGE/SEX: 37 years / Female INDICATIONS: Follow-up abnormal bowel gas pattern. CLINICAL DATA: This is the patient's subsequent encounter. Patient reports that signs and symptoms h ave been present for 4 - 6 days and indicates a pain score of 0/10. MEDICAL/SURGICAL HISTORY: . Scoliosis, Garcia rods, Congenital diaphragmatic hernia. Cholec ystectomy. . COMPARISON: [facility], ABDOMEN 2V FLAT & UPRIGHT, 09/18/2017. . FINDINGS: A single left lateral decubitus view of the abdomen was performed and demonstrates multiple loops of nondilated air-containing small bowel with multiple air-fluid levels. The previously noted contrast in the colon has passed. There is no evidence of free air. The bony structures remain intact. There a re postsurgical changes in the thoracic and lumbar spine with posterior fixation rods. Scoliosis is a gain noted. CONCLUSION: Nonspecific bowel gas pattern again noted with multiple air-fluid levels in small bowel. There is no free air. Note is made with the previous noted oral contrast has passed excluding high-grade bowel ob struction. Electronically signed by: Ruben Gonzalez MD 09/20/2017 9:39 AM EDT
[2017-09-20] MEDS: Sod Chloride 0.9% Inj 1,000 ML IV.CONT SCH ×2 (10:24→22:00)
--- NOTE | 2017-09-20 12:35 | XR ---
EXAM DATE: 09/20/2017 12:29 PM EDT AGE/SEX: 37 years / Female INDICATIONS: Ileus. CLINICAL DATA: This is the patient's subsequent encounter. Patient reports that signs and symptoms h ave been present for 4 - 6 days and indicates a pain score of 3/10. MEDICAL/SURGICAL HISTORY: . Scoliosis, Garcia rods, Congenital diaphragmatic hernia. Cholec ystectomy. . COMPARISON: [facility], SMALL BOWEL W GASTROGRAFIN, 09/17/2017. . FINDINGS: Evidence for previous spinal fixation minimal bibasilar parenchymal changes, progressed in the interv al. Dilated mid to distal small bowel probably in the right lower quadrant air-fluid levels. Scattere d gas seen in the descending colon. Solid stool in the rectum. CONCLUSION: Persistent dilated small bowel right lower quadrant similar to gastric after the study of 09/17/2017. No free air Minimal bibasilar parenchymal changes progressed in the interval Electronically signed by: Miguel Millan MD 09/20/2017 12:34 PM EDT
[2017-09-20] MEDS: Morphine Sulfate Inj 2 MG/ML Vial IV.PUSH PRN (23:41)
[2017-09-21] MEDS: Morphine Sulfate Inj 2 MG/ML Vial IV.PUSH PRN (05:01)
[2017-09-21] MEDS: Sod Chloride 0.9% Inj 1,000 ML IV.CONT SCH (05:41)
--- NOTE | 2017-09-21 07:19 | P.PN ---
Subjective Interval history: Had pain again last night after regular diet. Does not feel back to normal Physical Exam Vital signs: Vital Signs 09/20/17 08:00 09/20/17 12:00 09/20/17 16:00 Temperature 97.1 F L 98.5 F 97.4 F L Pulse Rate 75 77 82 Respiratory Rate 20 21 20 Blood Pressure 104/60 106/52 L 118/71 Pulse Oximetry 99 99 99 09/20/17 20:04 09/21/17 00:00 09/21/17 04:50 Temperature 96.5 F L 98.5 F Pulse Rate 75 80 76 Respiratory Rate 18 18 Blood Pressure 106/63 98/55 L 103/61 Pulse Oximetry 97 Intake & Output 09/20/17 09/21/17 09/21/17 18:59 06:59 18:59 Intake Total 1720 / 1720 2380 / 2380 Balance 1720 / 1720 2380 / 2380 Weight 30.1 kg Intake: IV 1000 / 1000 1900 / 1900 NS Inj 1,000 ML @ 100 mls/hr IV 1000 / 1000 1900 / 1900 .CONT .Q10H NICOLE Rx#:[id number] Oral 720 / 720 480 / 480 Other: # Voids 3 - Routine Abdominal Exam Present: soft, tenderness, distended Results - Labs CBC & Chem 7: 09/17/17 05:40 09/17/17 05:40 Microbiology 09/16/17 16:35 Blood - Peripheral Aerobic Blood Culture - Preliminary No growth in 4 days 09/16/17 16:35 Blood - Peripheral Anaerobic Blood Culture - Preliminary No growth in 4 days 09/16/17 16:40 Blood - Peripheral Aerobic Blood Culture - Preliminary No growth in 4 days 09/16/17 16:40 Blood - Peripheral Anaerobic Blood Culture - Preliminary No growth in 4 days - Imaging Impressions Abdomen X-Ray 09/20/17 06:00 CONCLUSION: Nonspecific bowel gas pattern again noted with multiple air-fluid levels in small bowel. There is no free air. Note is made with the previous noted oral contrast has passed excluding high-grade bowel obstruction. Abdomen X-Ray 09/20/17 12:07 CONCLUSION: Persistent dilated small bowel right lower quadrant similar to gastric after the study of 09/17/2017. No free air Minimal bibasilar parenchymal changes progressed in the interval Assessment and Plan - Assessment (1) Small bowel obstruction Code(s): K56.609 - Unspecified intestinal obstruction, unspecified as to partial versus complete obstruction Status: Acute Plan: Transfer to main OR for exp lap/lysis adhesions/possible small bowel resection. GAR discussed with patient; she vocalizes understanding and agrees to proceed. Will not be able to perform this laparoscopically; she is aware of this. - Plan Discussed Condition With: Patient
--- NOTE | 2017-09-21 07:48 | P.PN ---
Subjective Interval history: 37-year-old female who is seen and examined today in follow-up for bowel obstruction/ileus. Patient did not tolerate regular diet last night. Had increased pain and distention. Surgery plans on transferring the patient to the main for exploratory laparoscopy. Vital signs are stable, patient remains afebrile. Physical Exam Vital signs: Vital Signs 09/20/17 08:00 09/20/17 12:00 09/20/17 16:00 Temperature 97.1 F L 98.5 F 97.4 F L Pulse Rate 75 77 82 Respiratory Rate 20 21 20 Blood Pressure 104/60 106/52 L 118/71 Pulse Oximetry 99 99 99 09/20/17 20:04 09/21/17 00:00 09/21/17 04:50 Temperature 96.5 F L 98.5 F Pulse Rate 75 80 76 Respiratory Rate 18 18 Blood Pressure 106/63 98/55 L 103/61 Pulse Oximetry 97 Intake & Output 09/20/17 09/21/17 09/21/17 18:59 06:59 18:59 Intake Total 1720 / 1720 2380 / 2380 Balance 1720 / 1720 2380 / 2380 Weight 30.1 kg Intake: IV 1000 / 1000 1900 / 1900 NS Inj 1,000 ML @ 100 mls/hr IV 1000 / 1000 1900 / 1900 .CONT .Q10H NICOLE Rx#:[id number] Oral 720 / 720 480 / 480 Other: # Voids 3 Narrative: GENERAL: Well-developed, frail and cachectic, in no acute distress. alert and orientated HEENT: Head is normocephalic without any lesions or masses noted. Facial features are symmetric. Eyes: Extraocular muscles are intact. Conjunctivae were clear. NECK: Supple without any masses. Trachea midline no deviation. No JVD, CARDIAC: Regular rhythm, regular rate. S1/S2 are heard. No murmurs gallops or rubs. LUNGS: Clear to auscultation bilaterally. No wheeze, rhonchi or rales. No use of accessory muscles on inspiration or expiration. ABDOMEN: Soft, bowel is more distended today. Mild pain on palpation. Bowel sounds are still heard in all 4 quadrants. No organomegaly or masses. Negative rebound, negative guarding EXTREMITIES: No edema, pulses are equal bilaterally. No cyanosis or clubbing NEUROLOGY: Mood and affect appear appropriate. Cranial nerves II through XII grossly intact. Moving all extremities, speech is clear Results - Labs CBC & Chem 7: 09/17/17 05:40 09/17/17 05:40 Microbiology 09/16/17 16:35 Blood - Peripheral Aerobic Blood Culture - Preliminary No growth in 4 days 09/16/17 16:35 Blood - Peripheral Anaerobic Blood Culture - Preliminary No growth in 4 days 09/16/17 16:40 Blood - Peripheral Aerobic Blood Culture - Preliminary No growth in 4 days 09/16/17 16:40 Blood - Peripheral Anaerobic Blood Culture - Preliminary No growth in 4 days - Imaging Impressions Abdomen X-Ray 09/20/17 06:00 CONCLUSION: Nonspecific bowel gas pattern again noted with multiple air-fluid levels in small bowel. There is no free air. Note is made with the previous noted oral contrast has passed excluding high-grade bowel obstruction. Abdomen X-Ray 09/20/17 12:07 CONCLUSION: Persistent dilated small bowel right lower quadrant similar to gastric after the study of 09/17/2017. No free air Minimal bibasilar parenchymal changes progressed in the interval Assessment and Plan - Assessment (1) Small bowel obstruction Code(s): K56.609 - Unspecified intestinal obstruction, unspecified as to partial versus complete obstruction Status: Acute (2) Systemic inflammatory response syndrome Code(s): R65.10 - Systemic inflammatory response syndrome (SIRS) of non- infectious origin without acute organ dysfunction Status: Acute (3) Leukocytosis Code(s): D72.829 - Elevated white blood cell count, unspecified Status: Acute (4) Hyperglycemia Code(s): R73.9 - Hyperglycemia, unspecified Status: Resolved - Plan Early or partial small bowel obstruction -Patient does have history of abdominal surgeries with childhood gastroschisis, cholecystectomy -CT scan of the abdomen does show multiple loops of borderline dilated small bowel with multiple air-fluid levels findings are concerning for early or partial small bowel obstruction -Small bowel follow-through indicates: Distended loops of small bowel and contrast eventually makes it to the colon could be an ileus, however partial small bowel obstruction is not excluded. -Patient failing conservative measures. Patient will be going to the OR today for exploratory laparoscopy -Continue to advance diet per general surgery -Zofran as needed for nausea or vomiting -Morphine for pain control -Encouraged ambulation in the denis -General surgery consulted and and plans for exploratory laparoscopy today. Systemic inflammatory response syndrome, resolved -Likely secondary to small bowel obstruction -Patient presented with leukocytosis, tachycardia, no infectious source has been identified, patient has had bowel obstruction -Urinalysis is unremarkable for any infection -Blood cultures are negative for 4 days -Continue IV fluids Leukocytosis, resolved -Likely etiology could be from concentration. No signs of infection at this time -Follow CBC Hyperglycemia -Patient was initially started on Accu-Cheks with sliding scale insulin which has been discontinued -Hemoglobin A1c 5.4 DVT prevention -Sequential compression devices
[2017-09-21] MEDS ORDERED: Ketorolac Inj 30 MG/ML (IVP) Vial IV.PUSH ONE (09:28)
[2017-09-21] MEDS ORDERED: Phenylephrine/NS 1000 MCG/10ML Syringe IV.PUSH ONE (09:28)
[2017-09-21] MEDS ORDERED: Glycopyrrolate Inj 1 MG/5 ML Syringe IV.PUSH ONE (09:28)
[2017-09-21] MEDS ORDERED: Neostigmine Inj 5 MG/5 ML Syringe IV.PUSH ONE (09:28)
[2017-09-21] MEDS ORDERED: Chlorhexidine Gluconate 2% 1 Pack (2 Cloths) TOPICAL SCH (16:30)
[2017-09-21] MEDS ORDERED: Metoprolol Tartrate 25 MG Tablet PO SCH (16:30)
[2017-09-21] MEDS ORDERED: ACETAMINOPHEN 500 MG/50 ML IV.SIG SCH (17:00)
[2017-09-21] MEDS ORDERED: Sodium Chlor 0.9% Inj 500 ML IV.SIG SCH (17:00)
[2017-09-21] MEDS ORDERED: *morphine SULFATE 4 MG/ML PERIprocedure ONLY ONE ×2 (21:03→21:55)
--- NOTE | 2017-09-21 21:12 | P.OP ---
Date of procedure: 09/21/17 Procedure: Exploratory laparotomy Lysis of adhesions greater than 1 hour Ileocecal resection with primary anastomosis [facility]: Ruben Martinez MD Gold Letterer: Chi Rome CFA Estimated blood loss (mL): 100 IV fluids (mL): 1,100 Pathology: other (Distal ileum and cecum to pathology) Operation and Findings: The patient was taken to the operating room and placed on the operating table in the supine position. After an adequate level of general endotracheal anesthesia was achieved, the abdomen was prepped and draped in the usual fashion after Short catheter was placed. Timeout was taken, confirming the correct patient, site, and procedure to be performed. Incision was made in the lower abdomen in the midline and dissection carried down through the fascia sharply. The peritoneal cavity was directly visualized. Small bowel was adhered to the anterior abdominal wall and this was taken down very carefully with sharp dissection. No enterotomies were made. The patient had extensive adhesions from her previous gastroschisis. The patient had lysis of adhesions from the ligament of Treitz to the ileocecal valve. There was a dilated segment of bowel all the way down to the ileum approximately 20 cm proximal to the ileocecal valve. All of these adhesions were lysed very carefully over a 2 hour time period. When this was completed attempted stricturoplasty was made where the ileum narrowed down significantly. This did not allow for adequate opening of the distal ileum and would result in continued problems. It was thus elected to resect this atrophic segment of ileum. The ileum was divided with the MIKI stapler as was the cecum. The mesentery investing this part was clamped and ligated with 2-0 silk suture. The specimen was passed off the table. The remaining more dilated ileum and ascending colon were placed in a [id number] fashion. An ileocolostomy was fashioned and a MIKI-75 stapler was fired down the antimesenteric border. A 3-0 silk suture was placed at the toe of the staple line. The ileocolostomy was examined and the staple lines were seen to be clean and dry. The ileocecal anastomosis was then completed with a TA 60 type stapler. The mesenteric defect was closed with [id number] 3-0 silk sutures. With hemostasis assured, the abdomen was irrigated with saline. Sponge needle and instrument counts were reported to be correct during closure. #1 PDS was used to close the fascia in a running fashion. The skin was closed with keila. Deniz dressing was applied. The patient was extubated and taken back to the recovery room in stable condition.
[2017-09-21] MEDS ORDERED: fentaNYL Citrate Inj 100 MCG/2 ML Ampul ONE (21:13)
[2017-09-21] MEDS ORDERED: Naloxone Inj 0.4 MG/ML Vial IV.PUSH PRN ×3 (21:28→22:32)
[2017-09-21] MEDS: Morphine Inj 30 MG/30 ML PCA.VIAL PCA PRN (21:55)
[2017-09-21] MEDS ORDERED: Morphine Inj 30 MG/30 ML PCA.VIAL PCA ONE (21:55)
[2017-09-21 22:09] LABS: Baso % (Auto) 0.3 % (0.0-2.0); Eos % (Auto) 0.1 % (0.0-4.0); Hematocrit 30.7 % (35.0-46.0); Hemoglobin 9.9 gm/dL (11.6-15.3); Lymph # (Auto) 0.5 th/mm3 (1.0-4.8); Lymph % (Auto) 8.7 % (9.0-44.0); Mean Corpuscular HGB Conc 32.1 % (32.0-36.0); Mean Corpuscular Hemoglobin 30.2 pg (27.0-34.0); Mean Corpuscular Volume 93.9 fL (80.0-100.0); Mean Platelet Volume 8.6 fL (7.0-11.0); Mono # (Auto) 0.5 th/mm3 (0.0-0.9); Mono % (Auto) 9.4 % (0.0-8.0); Neut # (Auto) 4.5 th/mm3 (1.8-7.7); Neut % (Auto) 81.5 % (16.0-70.0); Platelet Count 209 th/mm3 (150-450); Red Blood Count 3.27 mil/mm3 (4.00-5.30); Red Cell Distribution Width 14.8 % (11.6-17.2); White Blood Count 5.5 th/mm3 (4.0-11.0)
[2017-09-21] MEDS ORDERED: Morphine Inj 30 MG/30 ML PCA.VIAL PCA PRN (22:32)
[2017-09-22] MEDS: Sod Chloride 0.9% Inj 1,000 ML IV.CONT SCH (07:08)
--- NOTE | 2017-09-22 08:45 | P.PNGS ---
<GilRadha - Last Filed: 09/22/17 08:42> Subjective Interval history: Resting in bed; painful Asking how long recovery will be Physical Exam Vital signs: Vital Signs 09/21/17 09:08 09/21/17 12:00 09/21/17 16:41 Temperature 97.9 F 98.8 F 97.8 F Pulse Rate 89 77 75 Respiratory Rate 16 16 20 Blood Pressure 111/65 110/63 115/76 Pulse Oximetry 94 L 98 100 09/21/17 20:52 09/21/17 21:00 09/21/17 21:15 Temperature 98.1 F Pulse Rate 76 75 87 Respiratory Rate 16 14 14 Blood Pressure 97/54 L 102/59 L 103/55 L Pulse Oximetry 99 100 99 09/21/17 21:30 09/21/17 21:45 09/21/17 22:00 Temperature Pulse Rate 87 87 91 H Respiratory Rate 14 14 14 Blood Pressure 101/57 L 103/60 105/63 Pulse Oximetry 100 100 100 09/21/17 22:15 09/22/17 00:00 09/22/17 04:00 Temperature 98.1 F 97.5 F L 98.1 F Pulse Rate 92 H 90 92 H Respiratory Rate 14 18 13 Blood Pressure 102/65 107/65 104/70 Pulse Oximetry 100 99 100 09/22/17 08:00 Temperature Pulse Rate Respiratory Rate 12 Blood Pressure Pulse Oximetry Intake & Output 09/21/17 09/22/17 09/22/17 18:59 06:59 18:59 Intake Total 200 / 200 1100 / 1100 950 / 950 Output Total 2275 / 2275 Balance 200 / 200 -1175 / -1175 950 / 950 Weight 31.5 kg Intake: IV 200 / 200 950 / 950 NS Inj 1,000 ML @ 100 mls/hr IV 950 / 950 .CONT .Q10H [facility] Rx#:[id number] Ancef Inj 1,000 MG In NS Inj 100 / 100 100 ML @ 200 mls/hr IV.SIG TICKET PULLER [facility] Rx#:[id number] Flagyl 500 MG Inj 100 ML @ 100 100 / 100 mls/hr IV.SIG TICKET PULLER [facility] Rx#: [id number] Anesthesia Amount 1100 / 1100 Output: Estimated Blood Loss 100 / 100 Urine Amount (Catheter) 2174 / 2174 Indwelling Urethral Catheter 2175 / 2175 Other: # Bowel Movements 0 Narrative: Alert and awake Cardio: RRR Resp: CTAB Abd: VENTURA in place; secured tubing to white battery box; now with green light and good seal; abdomen flat; tender throughout Ext: thin; no edema - Urinary Catheter Management Indwelling Urethral Catheter Cath placed during this visit: yes Reason for continuing: Other continuation reason Insertion date: 09/21/17 Insertion time: 17:45 Assessment and Plan - Assessment (1) Small bowel obstruction Code(s): K56.609 - Unspecified intestinal obstruction, unspecified as to partial versus complete obstruction Status: Acute Plan: 37 year old female POD1 Exploratory laparotomy; Lysis of adhesions greater than 1 hour; Ileocecal resection with primary anastomosis -Continue VENTURA dressing -NPO; okay for swabs -Continue IVF -SHEET ROCK FINISHER for pain control -OOB and mobilize as tolerated -Transfer to 7N when bed available -Discussed with RYLEY Velez at bedside - Plan 37 year old female with abdominal pain; nausea; vomiting; CT findings of early SBO vs PSBO likely secondary to adhesions from prior surgeries -Advance to full liquids -KUB pending -IVF -Pain control -Antiemetics -If patient fails trial of full liquids will plan to transfer to the main otherwise will continue non operative treatment <Ruben Martinez - Last Filed: 09/23/17 09:45> Physical Exam Vital signs: Vital Signs 09/22/17 11:57 09/22/17 12:00 09/22/17 16:53 Temperature 98.2 F 96.4 F L Pulse Rate 94 H 84 Respiratory Rate 12 21 16 Blood Pressure 111/73 108/73 Pulse Oximetry 100 99 09/22/17 17:00 09/22/17 20:00 09/23/17 00:00 Temperature 97.7 F 98.2 F 98.6 F Pulse Rate 74 98 H Respiratory Rate 18 18 Blood Pressure 106/61 108/71 Pulse Oximetry 100 100 09/23/17 08:00 Temperature 98.0 F Pulse Rate 100 H Respiratory Rate 17 Blood Pressure 101/65 Pulse Oximetry 98 Intake & Output 09/22/17 09/23/17 09/23/17 18:59 06:59 18:59 Intake Total 1000 / 1000 0 / 0 Output Total 575 / 575 1100 / 1100 Balance 425 / 425 -1100 / -1100 Intake: IV 1000 / 1000 NS Inj 1,000 ML @ 100 mls/hr IV 950 / 950 .CONT .Q10H [facility] Rx#:[id number] Ofirmev Inj 500 mg In 50 ml @ 50 / 50 200 mls/hr IV.SIG TICKET PULLER [facility] Rx#:[id number] Oral 0 / 0 0 / 0 Output: Urine 550 / 550 Urine Amount (Catheter) 375 / 375 Indwelling Urethral Catheter 375 / 375 Gastric Drainage 200 / 200 550 / 550 Left Nare 200 / 200 550 / 550 Other: Date of Last Bowel Movement 09/22/17 09/22/17 # Bowel Movements 0 - Urinary Catheter Management Indwelling Urethral Catheter Cath placed during this visit: no Assessment and Plan - Assessment (1) Small bowel obstruction Code(s): K56.609 - Unspecified intestinal obstruction, unspecified as to partial versus complete obstruction Status: Acute - Plan Wound clean; VENTURA intact Urine output adequate overnight, given patient's size Transfer to floor Await return of bowel function
[2017-09-22 09:33] LABS: Baso % (Auto) 0.1 % (0.0-2.0); Hematocrit 36.3 % (35.0-46.0); Hemoglobin 11.6 gm/dL (11.6-15.3); Lymph # (Auto) 0.3 th/mm3 (1.0-4.8); Lymph % (Auto) 2.1 % (9.0-44.0); Mean Corpuscular HGB Conc 32.1 % (32.0-36.0); Mean Corpuscular Hemoglobin 30.1 pg (27.0-34.0); Mean Corpuscular Volume 93.7 fL (80.0-100.0); Mean Platelet Volume 8.8 fL (7.0-11.0); Mono # (Auto) 1.5 th/mm3 (0.0-0.9); Mono % (Auto) 10.6 % (0.0-8.0); Neut # (Auto) 12.5 th/mm3 (1.8-7.7); Neut % (Auto) 87.2 % (16.0-70.0); Platelet Count 239 th/mm3 (150-450); Red Blood Count 3.87 mil/mm3 (4.00-5.30); White Blood Count 14.4 th/mm3 (4.0-11.0)
[2017-09-22 09:41] LABS: Anion Gap 11 meq/L (5-15); Blood Urea Nitrogen 6 mg/dL (7-18); Carbon Dioxide 23.7 meq/L (21.0-32.0); Chloride 103 meq/L (98-107); Glomerular Filtration Rate Greater Than 89 mL/min (>89); Glucose,Random 93 mg/dL (74-106); Potassium 3.6 meq/L (3.5-5.1); Sodium 138 meq/L (136-145)
[2017-09-22 10:10] LABS: Lymphocytes 7 % (9-44); Monocytes 13 % (0-8); Path Slide Review N; Platelet Estimate Normal (Normal); Platelet Morphology Normal (Normal)
[2017-09-22] MEDS: Morphine Inj 30 MG/30 ML PCA.VIAL PCA PRN (15:14)
--- NOTE | 2017-09-22 18:50 | ECG ---
Date Performed: 09/21/2017 Time Performed: 21:19:27 PTAGE: 37 years EKG: Sinus rhythm INDETERMINATE AXIS RIGHT BUNDLE BRANCH BLOCK MODERATE ST-T CHANGES ABNORMAL ECG NO PREVIOUS TRACING DOCTOR: Prema Navarrete Interpretating Date/Time 09/22/2017 18:49:23
[2017-09-23 07:39] LABS: Anion Gap 11 meq/L (5-15); Blood Urea Nitrogen 9 mg/dL (7-18); Calcium 7.7 mg/dL (8.5-10.1); Carbon Dioxide 21.5 meq/L (21.0-32.0); Chloride 108 meq/L (98-107); Glomerular Filtration Rate Greater Than 89 mL/min (>89); Glucose,Random 60 mg/dL (74-106); Potassium 3.9 meq/L (3.5-5.1)
[2017-09-23 07:56] LABS: Sodium 140 meq/L (136-145)
[2017-09-23] MEDS: Pantoprazole Inj 40 MG Vial IV.PUSH SCH (10:32)
[2017-09-23] MEDS: Morphine Inj 30 MG/30 ML PCA.VIAL PCA PRN (10:45)
[2017-09-23 10:47] LABS: Baso % (Auto) 0.1 % (0.0-2.0); Eos % (Auto) 0.1 % (0.0-4.0); Hematocrit 33.8 % (35.0-46.0); Hemoglobin 10.9 gm/dL (11.6-15.3); Lymph # (Auto) 0.4 th/mm3 (1.0-4.8); Lymph % (Auto) 3.7 % (9.0-44.0); Mean Corpuscular HGB Conc 32.4 % (32.0-36.0); Mean Corpuscular Hemoglobin 30.6 pg (27.0-34.0); Mean Corpuscular Volume 94.4 fL (80.0-100.0); Mean Platelet Volume 8.7 fL (7.0-11.0); Mono # (Auto) 1.2 th/mm3 (0.0-0.9); Mono % (Auto) 11.7 % (0.0-8.0); Neut # (Auto) 8.8 th/mm3 (1.8-7.7); Neut % (Auto) 84.4 % (16.0-70.0); Platelet Count 272 th/mm3 (150-450); Red Blood Count 3.58 mil/mm3 (4.00-5.30); Red Cell Distribution Width 15.5 % (11.6-17.2); White Blood Count 10.5 th/mm3 (4.0-11.0)
--- NOTE | 2017-09-23 11:27 | P.PNGS ---
<Radha Cordero - Last Filed: 09/23/17 11:48> Subjective Interval history: Resting in bed; no issues; asking what VENTURA dressing battery box is Physical Exam Vital signs: Vital Signs 09/22/17 11:57 09/22/17 12:00 09/22/17 16:53 Temperature 98.2 F 96.4 F L Pulse Rate 94 H 84 Respiratory Rate 12 21 16 Blood Pressure 111/73 108/73 Pulse Oximetry 100 99 09/22/17 17:00 09/22/17 20:00 09/23/17 00:00 Temperature 97.7 F 98.2 F 98.6 F Pulse Rate 74 98 H Respiratory Rate 18 18 Blood Pressure 106/61 108/71 Pulse Oximetry 100 100 09/23/17 08:00 Temperature 98.0 F Pulse Rate 100 H Respiratory Rate 17 Blood Pressure 101/65 Pulse Oximetry 98 Intake & Output 09/22/17 09/23/17 09/23/17 18:59 06:59 18:59 Intake Total 1000 / 1000 0 / 0 Output Total 575 / 575 1100 / 1100 Balance 425 / 425 -1100 / -1100 Intake: IV 1000 / 1000 NS Inj 1,000 ML @ 100 mls/hr IV 950 / 950 .CONT .Q10H [facility] Rx#:[id number] Ofirmev Inj 500 mg In 50 ml @ 50 / 50 200 mls/hr IV.SIG ACUPRESSURIST [facility] Rx#:[id number] Oral 0 / 0 0 / 0 Output: Urine 550 / 550 Urine Amount (Catheter) 375 / 375 Indwelling Urethral Catheter 375 / 375 Gastric Drainage 200 / 200 550 / 550 Left Nare 200 / 200 550 / 550 Other: Date of Last Bowel Movement 09/22/17 09/22/17 # Bowel Movements 0 Narrative: Alert and awake Cardio: RRR Resp: CTAB Abd: thin; flat; VENTURA in place with good seal; tender throughout Ext: no edema - Urinary Catheter Management Indwelling Urethral Catheter Cath placed during this visit: yes Reason for continuing: Other continuation reason Insertion date: 09/21/17 Insertion time: 17:45 Assessment and Plan - Assessment (1) Small bowel obstruction Code(s): K56.609 - Unspecified intestinal obstruction, unspecified as to partial versus complete obstruction Status: Acute Plan: 37 year old female POD1 Exploratory laparotomy; Lysis of adhesions greater than 1 hour; Ileocecal resection with primary anastomosis -Continue VENTURA dressing -NPO; okay for swabs -Continue IVF -LAW FIRM CONSULTANT for pain control -OOB and mobilize as tolerated -Transfer to 7N when bed available -Discussed with RYLEY Velez at bedside - Plan 37 year old female with abdominal pain; nausea; vomiting; CT findings of early SBO vs PSBO likely secondary to adhesions from prior surgeries -POD2 ex lap; ileocecal resection with primary anastomosis -NPO; okay for swabs -Will start diet once bowel function returns -IVF -OOB and mobilize -NGT to LIWS; okay to clamp to ambulate in the hallways <Ruben Martinez - Last Filed: 09/27/17 19:50> Physical Exam Vital signs: Vital Signs 09/26/17 20:00 09/27/17 00:00 09/27/17 08:00 Temperature 100.2 F H 97.9 F 98.0 F Pulse Rate 102 H 88 88 Respiratory Rate 20 18 17 Blood Pressure 112/67 106/65 113/68 Pulse Oximetry 94 L 93 L 92 L 09/27/17 12:00 09/27/17 16:00 Temperature 98.1 F 97.5 F L Pulse Rate 90 89 Respiratory Rate 17 17 Blood Pressure 113/68 122/71 Pulse Oximetry 93 L 96 Intake & Output 09/27/17 09/27/17 09/28/17 06:59 18:59 06:59 Intake Total 2518 / 2518 Output Total 1025 / 1025 250 / 250 Balance -1025 / -1025 2268 / 2268 Intake: IV 1000 / 1000 NS + KCl 20 mEq Inj 1,000 ML @ 1000 / 1000 50 mls/hr IV.CONT .Q20H [facility] Rx# :[id number] Oral 1518 / 1518 Output: Urine 650 / 650 Gastric Drainage 375 / 375 250 / 250 Left Nare 375 / 375 250 / 250 Other: # Voids 7 Date of Last Bowel Movement 09/20/17 - Urinary Catheter Management Indwelling Urethral Catheter Cath placed during this visit: no Assessment and Plan - Assessment (1) Small bowel obstruction Code(s): K56.609 - Unspecified intestinal obstruction, unspecified as to partial versus complete obstruction Status: Acute - Plan Abdomen soft but distended; VENTURA dressing dry and intact The exam, history, and the medical decision-making described in the above note were completed with the assistance of the mid-level provider. I reviewed and agree with the findings presented. I attest that I had a [id number] encounter with the patient on the same day, and personally performed and documented my assessment and findings in the medical record.
[2017-09-23] MEDS: Sod Chloride 0.9% Inj 1,000 ML IV.CONT SCH ×2 (22:39→22:40)
[2017-09-24] MEDS: Sod Chloride 0.9% Inj 1,000 ML IV.CONT SCH ×2 (08:53→22:03)
[2017-09-24] MEDS ORDERED: Enoxaparin Inj 40 MG/0.4 ML Syringe SQ SCH (09:45)
[2017-09-24] MEDS: Pantoprazole Inj 40 MG Vial IV.PUSH SCH (10:25)
--- NOTE | 2017-09-24 11:13 | P.PNGS ---
Subjective Patient reports: feels better, no flatus, no bowel movement (no nausea, NG 300cc ) Physical Exam Vital signs: Vital Signs 09/23/17 12:00 09/23/17 16:00 09/23/17 19:44 Temperature 97.9 F 98.3 F Pulse Rate 98 H 102 H Respiratory Rate 17 18 12 Blood Pressure 107/64 100/56 L Pulse Oximetry 100 96 09/23/17 20:00 09/24/17 00:00 09/24/17 04:00 Temperature 98.7 F 98.3 F 97.7 F Pulse Rate 105 H 110 H 94 H Respiratory Rate 18 20 18 Blood Pressure 106/66 113/70 104/70 Pulse Oximetry 96 94 L 94 L 09/24/17 08:00 Temperature 98.3 F Pulse Rate 95 H Respiratory Rate 12 Blood Pressure 105/70 Pulse Oximetry 96 Intake & Output 09/23/17 09/24/17 09/24/17 18:59 06:59 18:59 Intake Total 60 / 60 1000 / 1000 Output Total 1575 / 1575 300 / 300 Balance -1515 / -1515 700 / 700 Intake: IV 1000 / 1000 NS Inj 1,000 ML @ 100 mls/hr IV 1000 / 1000 .CONT .Q10H [facility] Rx#:[id number] Oral 60 / 60 Output: Urine 1575 / 1575 Gastric Drainage 300 / 300 Left Nare 300 / 300 Other: # Voids 3 1 Date of Last Bowel Movement 09/22/17 - Routine Respiratory Exam Present: CTA bilaterally - Routine Cardiovascular Exam Present: RRR - Routine Abdominal Exam Present: soft (diffuse incisional tenderness, no rebound, ventura scant dry blood, good seal) - Urinary Catheter Management Indwelling Urethral Catheter Cath placed during this visit: yes Reason for continuing: Other continuation reason Insertion date: 09/21/17 Insertion time: 17:45 Assessment and Plan - Assessment (1) Small bowel obstruction Code(s): K56.609 - Unspecified intestinal obstruction, unspecified as to partial versus complete obstruction Status: Acute - Plan 37 year old female with SBO secondary to adhesions from prior surgeries, POD3ex lap; ileocecal resection with primary anastomosis No bowel fxn yet PLAN -NPO; okay for swabs and small amount of ice chips -IVF -OOB and mobilize, clamp ng while oob - VENTURA to sxn -dvt ppx
[2017-09-24] MEDS: Enoxaparin Inj 30 MG/0.3 ML Syringe SQ SCH (13:33)
[2017-09-25] MEDS: Sod Chloride 0.9% Inj 1,000 ML IV.CONT SCH ×3 (00:09→22:04)
[2017-09-25] MEDS: Morphine Inj 30 MG/30 ML PCA.VIAL PCA PRN (04:19)
[2017-09-25] MEDS: Enoxaparin Inj 30 MG/0.3 ML Syringe SQ SCH (10:35)
[2017-09-25] MEDS: Pantoprazole Inj 40 MG Vial IV.PUSH SCH (10:36)
--- NOTE | 2017-09-25 10:37 | P.PNGS ---
Subjective Patient reports: pain is less, flatus, afebrile (feels better, wants something to drink. reports several epiosodes of flatus, walking in halls) Physical Exam Vital signs: Vital Signs 09/24/17 12:00 09/24/17 16:00 09/24/17 20:00 Temperature 98.1 F 98.8 F 97.0 F L Pulse Rate 90 89 93 H Respiratory Rate 14 14 20 Blood Pressure 111/71 103/68 102/63 Pulse Oximetry 96 95 95 09/25/17 00:00 09/25/17 04:00 09/25/17 08:00 Temperature 96.7 F L 97.5 F L 98.0 F Pulse Rate 94 H 96 H 95 H Respiratory Rate 20 18 18 Blood Pressure 100/55 L 104/58 L 105/66 Pulse Oximetry 93 L 93 L 93 L Intake & Output 09/24/17 09/25/17 09/25/17 18:59 06:59 18:59 Intake Total 1000 / 1000 0 / 0 Output Total 0 / 0 Balance 1000 / 1000 0 / 0 Weight 32.3 kg Intake: IV 1000 / 1000 NS Inj 1,000 ML @ 100 mls/hr IV 1000 / 1000 .CONT .Q10H [facility] Rx#:[id number] Oral 0 / 0 Output: Gastric Drainage 0 / 0 Left Nare 0 / 0 Other: # Voids 1 4 Date of Last Bowel Movement 09/22/17 09/22/17 - Routine Abdominal Exam Present: soft, wound Comments: ventura in place, no drainage - Urinary Catheter Management Indwelling Urethral Catheter Cath placed during this visit: yes Reason for continuing: Other continuation reason Insertion date: 09/21/17 Insertion time: 17:45 Assessment and Plan - Assessment (1) Small bowel obstruction Code(s): K56.609 - Unspecified intestinal obstruction, unspecified as to partial versus complete obstruction Status: Acute Plan: 37 year old female POD1 Exploratory laparotomy; Lysis of adhesions greater than 1 hour; Ileocecal resection with primary anastomosis -Continue VENTURA dressing -NPO; okay for swabs -Continue IVF -CARDIOLOGIST for pain control -OOB and mobilize as tolerated -Transfer to 7N when bed available -Discussed with RYLEY Velez at bedside - Plan doing well bowel function returning, NG only 300/24hours will remove NG and start clears decrease IVF
[2017-09-26] MEDS: Morphine Inj 30 MG/30 ML PCA.VIAL PCA PRN (09:06)
[2017-09-26] MEDS: Enoxaparin Inj 30 MG/0.3 ML Syringe SQ SCH (09:19)
[2017-09-26] MEDS: Pantoprazole Inj 40 MG Vial IV.PUSH SCH (09:19)
--- NOTE | 2017-09-26 09:59 | P.PNGS ---
Subjective Patient reports: still having pain (pt feels distended and burping, small flatus , no bm) Physical Exam Vital signs: Vital Signs 09/25/17 12:00 09/25/17 16:00 09/25/17 20:00 Temperature 97.5 F L 98.2 F 98.0 F Pulse Rate 92 H 90 87 Respiratory Rate 16 18 18 Blood Pressure 116/65 118/59 L 114/61 Pulse Oximetry 98 98 92 L 09/26/17 00:00 09/26/17 04:00 09/26/17 08:00 Temperature 99.7 F H 96.8 F L 97.4 F L Pulse Rate 90 92 H 95 H Respiratory Rate 18 18 17 Blood Pressure 121/67 115/65 113/71 Pulse Oximetry 92 L 92 L 92 L Intake & Output 09/25/17 09/26/17 09/26/17 18:59 06:59 18:59 Intake Total 1950 / 1950 1000 / 1000 Output Total 50 / 50 700 / 700 Balance 1900 / 1900 300 / 300 Intake: IV 1000 / 1000 1000 / 1000 NS Inj 1,000 ML @ 50 mls/hr IV. 1000 / 1000 1000 / 1000 CONT .Q20H [facility] Rx#:[id number] Oral 950 / 950 Output: Urine 700 / 700 Gastric Drainage 50 / 50 0 / 0 Left Nare 50 / 50 0 / 0 Other: # Voids 4 Date of Last Bowel Movement 09/22/17 - Routine Abdominal Exam Present: soft, tenderness, distended - Urinary Catheter Management Indwelling Urethral Catheter Cath placed during this visit: yes Reason for continuing: Other continuation reason Insertion date: 09/21/17 Insertion time: 17:45 Assessment and Plan - Assessment (1) Small bowel obstruction Code(s): K56.609 - Unspecified intestinal obstruction, unspecified as to partial versus complete obstruction Status: Acute Plan: 37 year old female POD1 Exploratory laparotomy; Lysis of adhesions greater than 1 hour; Ileocecal resection with primary anastomosis -Continue VENTURA dressing -NPO; okay for swabs -Continue IVF -BINGO CHECKER for pain control -OOB and mobilize as tolerated -Transfer to 7N when bed available -Discussed with RYLEY Velez at bedside - Plan 37 year old female with SBO secondary to adhesions from prior surgeries, POD5ex lap; ileocecal resection with primary anastomosis No bowel fxn yet PLAN -ok for sips of clears, will keep ng to sxn for now, check AXR -IVF -OOB and mobilize, clamp ng while oob -d/c electrical test engineer, iv morphine - VENTURA to sxn -dvt ppx
--- NOTE | 2017-09-26 10:29 | XR ---
EXAM DATE: 09/26/2017 10:20 AM EDT AGE/SEX: 37 years / Female INDICATIONS: Evaluate for obstruction vs ileus CLINICAL DATA: This is the patient's subsequent encounter. Patient reports that signs and symptoms h ave been present for 4 - 6 days and indicates a pain score of 3/10. MEDICAL/SURGICAL HISTORY: . Scoliosis, Congenital diaphragmatic hernia. . . Garcia rods ,Cholecystectomy. COMPARISON: [facility], ABDOMEN 2V FLAT & UPRIGHT, 09/20/2017. . FINDINGS: There is no significant change in distended loops of small bowel with air-fluid levels within them in right lower quadrant and there is gas throughout the colon down to the rectum as well. There is no e vidence for free intraperitoneal air for technique. The rest of the examination has not changed. CONCLUSION: Stable distended loops of bowel not significantly changed since the prior exam. Electronically signed by: Kojo Gutiérrez MD 09/26/2017 10:28 AM EDT
[2017-09-26 11:15] LABS: Baso % (Auto) 0.3 % (0.0-2.0); Eos % (Auto) 0.2 % (0.0-4.0); Hematocrit 30.3 % (35.0-46.0); Hemoglobin 9.9 gm/dL (11.6-15.3); Lymph # (Auto) 0.3 th/mm3 (1.0-4.8); Lymph % (Auto) 3.9 % (9.0-44.0); Mean Corpuscular HGB Conc 32.8 % (32.0-36.0); Mean Corpuscular Hemoglobin 30.2 pg (27.0-34.0); Mean Corpuscular Volume 92.1 fL (80.0-100.0); Mean Platelet Volume 7.7 fL (7.0-11.0); Mono # (Auto) 1.1 th/mm3 (0.0-0.9); Mono % (Auto) 12.8 % (0.0-8.0); Neut # (Auto) 7.3 th/mm3 (1.8-7.7); Neut % (Auto) 82.8 % (16.0-70.0); Platelet Count 388 th/mm3 (150-450); Red Blood Count 3.28 mil/mm3 (4.00-5.30); Red Cell Distribution Width 15.2 % (11.6-17.2); White Blood Count 8.8 th/mm3 (4.0-11.0)
[2017-09-26 11:36] LABS: Anion Gap 10 meq/L (5-15); Blood Urea Nitrogen 3 mg/dL (7-18); Calcium 7.9 mg/dL (8.5-10.1); Carbon Dioxide 25.6 meq/L (21.0-32.0); Chloride 104 meq/L (98-107); Glomerular Filtration Rate Greater Than 89 mL/min (>89); Glucose,Random 91 mg/dL (74-106); Sodium 140 meq/L (136-145)
[2017-09-26 11:38] LABS: Potassium 2.7 meq/L (3.5-5.1)
[2017-09-26] MEDS: Morphine Inj 4 MG/ML Vial IV.PUSH PRN ×2 (18:51→22:01)
[2017-09-26] MEDS: Sod Chloride 0.9% Inj 1,000 ML IV.CONT SCH (21:56)
[2017-09-27] MEDS: Morphine Inj 4 MG/ML Vial IV.PUSH PRN ×6 (00:58→23:28)
[2017-09-27] MEDS: Enoxaparin Inj 30 MG/0.3 ML Syringe SQ SCH (10:04)
[2017-09-27] MEDS: Pantoprazole Inj 40 MG Vial IV.PUSH SCH (10:05)
[2017-09-27] MEDS: Sod Chloride 0.9% Inj 1,000 ML IV.CONT SCH (10:49)
--- NOTE | 2017-09-27 14:45 | P.PNGS ---
<GilRadha - Last Filed: 09/27/17 14:43> Subjective Interval history: Resting in bed; passing flatus Physical Exam Vital signs: Vital Signs 09/26/17 16:00 09/26/17 20:00 09/27/17 00:00 Temperature 97.2 F L 100.2 F H 97.9 F Pulse Rate 97 H 102 H 88 Respiratory Rate 17 20 18 Blood Pressure 112/77 112/67 106/65 Pulse Oximetry 92 L 94 L 93 L 09/27/17 08:00 09/27/17 12:00 Temperature 98.0 F 98.1 F Pulse Rate 88 90 Respiratory Rate 17 17 Blood Pressure 113/68 113/68 Pulse Oximetry 92 L 93 L Intake & Output 09/26/17 09/27/17 09/27/17 18:59 06:59 18:59 Intake Total 1000 / 1000 Output Total 1025 / 1025 Balance -1025 / -1025 1000 / 1000 Intake: IV 1000 / 1000 NS + KCl 20 mEq Inj 1,000 ML @ 1000 / 1000 50 mls/hr IV.CONT .Q20H [facility] Rx# :[id number] Output: Urine 650 / 650 Gastric Drainage 375 / 375 Left Nare 375 / 375 Other: # Voids 2 Date of Last Bowel Movement 09/20/17 # Bowel Movements 1 Narrative: Alert and awake Cardio: RRR Resp: CTAB Abd: distended---more on the RIGHT than the LEFT; VENTURA in place - Urinary Catheter Management Indwelling Urethral Catheter Cath placed during this visit: yes Reason for continuing: Other continuation reason Insertion date: 09/21/17 Insertion time: 17:45 Assessment and Plan - Assessment (1) Small bowel obstruction Code(s): K56.609 - Unspecified intestinal obstruction, unspecified as to partial versus complete obstruction Status: Acute Plan: 37 year old female POD1 Exploratory laparotomy; Lysis of adhesions greater than 1 hour; Ileocecal resection with primary anastomosis -Continue VENTURA dressing -NPO; okay for swabs -Continue IVF -RESTAURANT WORKER for pain control -OOB and mobilize as tolerated -Transfer to 7N when bed available -Discussed with RYLEY Velez at bedside - Plan 37 year old female with abdominal pain; nausea; vomiting; CT findings of early SBO vs PSBO likely secondary to adhesions from prior surgeries -POD6 ex lap; ileocecal resection with primary anastomosis -Clamp NGT; start sips of clears -IVF -OOB and mobilize---encouraged to mobilize in hallways <Ruben Martinez - Last Filed: 09/27/17 20:00> Physical Exam Vital signs: Vital Signs 09/27/17 00:00 09/27/17 08:00 09/27/17 12:00 Temperature 97.9 F 98.0 F 98.1 F Pulse Rate 88 88 90 Respiratory Rate 18 17 17 Blood Pressure 106/65 113/68 113/68 Pulse Oximetry 93 L 92 L 93 L 09/27/17 16:00 Temperature 97.5 F L Pulse Rate 89 Respiratory Rate 17 Blood Pressure 122/71 Pulse Oximetry 96 Intake & Output 09/27/17 09/27/17 09/28/17 06:59 18:59 06:59 Intake Total 2518 / 2518 Output Total 1025 / 1025 250 / 250 Balance -1025 / -1025 2268 / 2268 Intake: IV 1000 / 1000 NS + KCl 20 mEq Inj 1,000 ML @ 1000 / 1000 50 mls/hr IV.CONT .Q20H [facility] Rx# :[id number] Oral 1518 / 1518 Output: Urine 650 / 650 Gastric Drainage 375 / 375 250 / 250 Left Nare 375 / 375 250 / 250 Other: # Voids 7 Date of Last Bowel Movement 09/20/17 - Urinary Catheter Management Indwelling Urethral Catheter Cath placed during this visit: no Assessment and Plan - Assessment (1) Small bowel obstruction Code(s): K56.609 - Unspecified intestinal obstruction, unspecified as to partial versus complete obstruction Status: Acute - Plan Abdomen mildly distended. NG output approximately 300 mls overnight. Patient reports passing flatus but no BM yet. The exam, history, and the medical decision-making described in the above note were completed with the assistance of the mid-level provider. I reviewed and agree with the findings presented. I attest that I had a [id number] encounter with the patient on the same day, and personally performed and documented my assessment and findings in the medical record.
[2017-09-27] MEDS: Erythromycin Ethylsuccinate Susp 200 MG/5 ML 100 ML Bottle PO SCH ×2 (15:26→21:47)
[2017-09-28] MEDS: Erythromycin Ethylsuccinate Susp 200 MG/5 ML 100 ML Bottle PO SCH ×4 (05:25→22:09)
[2017-09-28] MEDS: Sod Chloride 0.9% Inj 1,000 ML IV.CONT SCH (07:20)
[2017-09-28] MEDS: Enoxaparin Inj 30 MG/0.3 ML Syringe SQ SCH (08:21)
[2017-09-28] MEDS: Pantoprazole Inj 40 MG Vial IV.PUSH SCH (09:47)
--- NOTE | 2017-09-28 11:18 | P.PNGS ---
<GilRadha - Last Filed: 09/28/17 11:16> Subjective Interval history: Resting in bed; NGT annoying her Physical Exam Vital signs: Vital Signs 09/27/17 12:00 09/27/17 16:00 09/27/17 20:00 Temperature 98.1 F 97.5 F L 97.9 F Pulse Rate 90 89 84 Respiratory Rate 17 17 15 Blood Pressure 113/68 122/71 113/59 L Pulse Oximetry 93 L 96 94 L 09/28/17 00:00 09/28/17 08:00 Temperature 97.5 F L 97.7 F Pulse Rate 82 79 Respiratory Rate 15 18 Blood Pressure 113/65 102/65 Pulse Oximetry 95 95 Intake & Output 09/27/17 09/28/17 09/28/17 18:59 06:59 18:59 Intake Total 2518 / 2518 480 / 480 1000 / 1000 Output Total 250 / 250 Balance 2268 / 2268 480 / 480 1000 / 1000 Weight 32.5 kg Intake: IV 1000 / 1000 1000 / 1000 NS + KCl 20 mEq Inj 1,000 ML @ 1000 / 1000 1000 / 1000 50 mls/hr IV.CONT .Q20H [facility] Rx# :[id number] Oral 1518 / 1518 480 / 480 Output: Gastric Drainage 250 / 250 Left Nare 250 / 250 Other: # Voids 7 3 Date of Last Bowel Movement 09/20/17 09/27/17 09/28/17 Narrative: Alert and awake cardio: RRR Resp: CTAB Abd: less distended; VENTURA in place; mildly tender NGT residual checked with less than 10 cc - Urinary Catheter Management Indwelling Urethral Catheter Cath placed during this visit: yes Reason for continuing: Other continuation reason Insertion date: 09/21/17 Insertion time: 17:45 Assessment and Plan - Assessment (1) Small bowel obstruction Code(s): K56.609 - Unspecified intestinal obstruction, unspecified as to partial versus complete obstruction Status: Acute Plan: 37 year old female s/p Exploratory laparotomy; Lysis of adhesions greater than 1 hour; Ileocecal resection with primary anastomosis -Continue VENTURA dressing -NGT out; start full liquids -Lovenox -OOB and mobilize -+BM <Ruben Martinez - Last Filed: 09/28/17 19:32> Physical Exam Vital signs: Vital Signs 09/27/17 20:00 09/28/17 00:00 09/28/17 08:00 Temperature 97.9 F 97.5 F L 97.7 F Pulse Rate 84 82 79 Respiratory Rate 15 15 18 Blood Pressure 113/59 L 113/65 102/65 Pulse Oximetry 94 L 95 95 09/28/17 12:00 09/28/17 16:00 Temperature 98.1 F 97.8 F Pulse Rate 80 84 Respiratory Rate 19 19 Blood Pressure 94/65 L 104/61 Pulse Oximetry 96 99 Intake & Output 09/28/17 09/28/17 09/29/17 06:59 18:59 06:59 Intake Total 480 / 480 1959 / 1960 Balance 480 / 480 1959 / 1959 Weight 32.5 kg Intake: IV 1000 / 1000 NS + KCl 20 mEq Inj 1,000 ML @ 1000 / 1000 50 mls/hr IV.CONT .Q20H [facility] Rx# :[id number] Oral 480 / 480 960 / 960 Other: # Voids 3 4 Date of Last Bowel Movement 09/27/17 09/28/17 # Bowel Movements 2 - Routine Abdominal Exam Present: soft, distended, wound (VENTURA dressing dry and intact) - Urinary Catheter Management Indwelling Urethral Catheter Cath placed during this visit: no Assessment and Plan - Assessment (1) Small bowel obstruction Code(s): K56.609 - Unspecified intestinal obstruction, unspecified as to partial versus complete obstruction Status: Acute Plan: Doing well on fulls, but still somewhat distended Had three BM's today Advance diet in AM Heplock fluids in AM Strongly encouraged to ambulate in hallways tomorrow. Discharge in next 24-48 hrs - Attending Attestation The exam, history, and the medical decision-making described in the above note were completed with the assistance of the mid-level provider. I reviewed and agree with the findings presented. I attest that I had a [id number] encounter with the patient on the same day, and personally performed and documented my assessment and findings in the medical record.
[2017-09-28] MEDS: Morphine Inj 4 MG/ML Vial IV.PUSH PRN ×2 (15:10→18:42)
[2017-09-29] MEDS: Sod Chloride 0.9% Inj 1,000 ML IV.CONT SCH ×2 (03:35→22:57)
[2017-09-29] MEDS: Erythromycin Ethylsuccinate Susp 200 MG/5 ML 100 ML Bottle PO SCH ×4 (05:11→21:26)
[2017-09-29] MEDS: Morphine Inj 4 MG/ML Vial IV.PUSH PRN ×2 (08:44→20:21)
[2017-09-29] MEDS: Pantoprazole Inj 40 MG Vial IV.PUSH SCH (10:19)
[2017-09-29] MEDS: Enoxaparin Inj 30 MG/0.3 ML Syringe SQ SCH (10:19)
[2017-09-29 10:48] LABS: Baso % (Auto) 0.3 % (0.0-2.0); Eos # (Auto) 0.1 th/mm3 (0.0-0.4); Eos % (Auto) 0.7 % (0.0-4.0); Hemoglobin 10.3 gm/dL (11.6-15.3); Lymph # (Auto) 0.5 th/mm3 (1.0-4.8); Lymph % (Auto) 6.7 % (9.0-44.0); Mean Corpuscular HGB Conc 33.3 % (32.0-36.0); Mean Corpuscular Hemoglobin 30.4 pg (27.0-34.0); Mean Corpuscular Volume 91.3 fL (80.0-100.0); Mean Platelet Volume 8.6 fL (7.0-11.0); Mono # (Auto) 0.7 th/mm3 (0.0-0.9); Mono % (Auto) 9.5 % (0.0-8.0); Neut # (Auto) 6.2 th/mm3 (1.8-7.7); Neut % (Auto) 82.8 % (16.0-70.0); Platelet Count 459 th/mm3 (150-450); Red Blood Count 3.39 mil/mm3 (4.00-5.30); Red Cell Distribution Width 15.1 % (11.6-17.2); White Blood Count 7.5 th/mm3 (4.0-11.0)
[2017-09-29 11:09] LABS: Blood Urea Nitrogen 3 mg/dL (7-18); Carbon Dioxide 30.6 meq/L (21.0-32.0); Glomerular Filtration Rate Greater Than 89 mL/min (>89); Glucose,Random 114 mg/dL (74-106)
[2017-09-29 11:34] LABS: Anion Gap 9 meq/L (5-15); Chloride 100 meq/L (98-107); Potassium 2.8 meq/L (3.5-5.1); Sodium 140 meq/L (136-145)
--- NOTE | 2017-09-29 14:44 | P.PNGS ---
<GilRadha - Last Filed: 09/29/17 14:42> Subjective Interval history: Up to chair Wants double portions of food in case she gets hungry later Physical Exam Vital signs: Vital Signs 09/28/17 16:00 09/28/17 20:00 09/29/17 00:00 Temperature 97.8 F 98.5 F 98.5 F Pulse Rate 84 80 70 Respiratory Rate 19 20 18 Blood Pressure 104/61 109/70 100/64 Pulse Oximetry 99 97 97 09/29/17 08:00 09/29/17 12:00 Temperature 98.1 F 97.6 F Pulse Rate 73 72 Respiratory Rate 18 18 Blood Pressure 100/60 103/68 Pulse Oximetry 98 99 Intake & Output 09/28/17 09/29/17 09/29/17 18:59 06:59 18:59 Intake Total 1959 1240 / 1240 Balance 1959 1240 / 1240 Weight 33.8 kg Intake: IV 1000 / 1000 1000 / 1000 NS + KCl 20 mEq Inj 1,000 ML @ 1000 / 1000 1000 / 1000 50 mls/hr IV.CONT .Q20H NICOLE Rx# :[id number] Oral 960 / 960 240 / 240 Other: # Voids 4 3 Date of Last Bowel Movement 09/28/17 09/28/17 # Bowel Movements 2 Narrative: Alert and awake Cardio: RRR Resp: CTAB Abd: VENTURA in place; minimally tender - Urinary Catheter Management Indwelling Urethral Catheter Cath placed during this visit: yes Reason for continuing: Other continuation reason Insertion date: 09/21/17 Insertion time: 17:45 Assessment and Plan - Assessment (1) Small bowel obstruction Code(s): K56.609 - Unspecified intestinal obstruction, unspecified as to partial versus complete obstruction Status: Acute Plan: s - Plan 37 year old female with abdominal pain; nausea; vomiting; CT findings of early SBO vs PSBO likely secondary to adhesions from prior surgeries -POD7 ex lap; ileocecal resection with primary anastomosis -Remove VENTURA -Replace K -Advance to regular diet----double portions -OOB and mobilize---encouraged to mobilize in hallways -Likely DC in next 24-48 hours <Ruben Martinez - Last Filed: 10/01/17 07:30> Physical Exam Vital signs: Vital Signs 09/30/17 08:00 09/30/17 12:00 09/30/17 16:00 Temperature 97.7 F 97.2 F L 98.1 F Pulse Rate 88 86 97 H Respiratory Rate 17 17 17 Blood Pressure 111/70 116/57 L 107/55 L Pulse Oximetry 97 98 99 09/30/17 20:00 10/01/17 00:00 Temperature 98 F 98.1 F Pulse Rate 98 H 76 Respiratory Rate 16 16 Blood Pressure 107/64 108/60 Pulse Oximetry 94 L 98 Intake & Output 09/30/17 10/01/17 10/01/17 18:59 06:59 18:59 Intake Total 820 / 820 240 / 240 Balance 820 / 820 240 / 240 Weight 31.1 kg Intake: Oral 720 / 720 240 / 240 Other 100 / 100 Other: # Voids 5 3 Date of Last Bowel Movement 09/29/17 - Urinary Catheter Management Indwelling Urethral Catheter Cath placed during this visit: no Assessment and Plan - Assessment (1) Small bowel obstruction Code(s): K56.609 - Unspecified intestinal obstruction, unspecified as to partial versus complete obstruction Status: Acute - Plan Abdomen is still mildly distended, but nontender Advance diet, as she has had multiple BM's Stable Remove keila in AM Home tomorrow The exam, history, and the medical decision-making described in the above note were completed with the assistance of the mid-level provider. I reviewed and agree with the findings presented. I attest that I had a [id number] encounter with the patient on the same day, and personally performed and documented my assessment and findings in the medical record.
[2017-09-29] MEDS: Potassium Chlor 20 mEq Premix 20 MEQ/100 ML PIGGYBACK IV.SIG SCH ×2 (15:32→18:03)
[2017-09-30] MEDS: Morphine Inj 4 MG/ML Vial IV.PUSH PRN ×3 (01:04→13:27)
[2017-09-30] MEDS: Erythromycin Ethylsuccinate Susp 200 MG/5 ML 100 ML Bottle PO SCH ×4 (04:54→21:07)
[2017-09-30] MEDS: Pantoprazole Inj 40 MG Vial IV.PUSH SCH (09:28)
[2017-09-30] MEDS: Enoxaparin Inj 30 MG/0.3 ML Syringe SQ SCH (09:28)
[2017-09-30 09:39] LABS: Anion Gap 7 meq/L (5-15); Blood Urea Nitrogen 3 mg/dL (7-18); Calcium 8.5 mg/dL (8.5-10.1); Carbon Dioxide 29.8 meq/L (21.0-32.0); Chloride 103 meq/L (98-107); Glomerular Filtration Rate Greater Than 89 mL/min (>89); Glucose,Random 83 mg/dL (74-106); Potassium 3.7 meq/L (3.5-5.1); Sodium 140 meq/L (136-145)
[2017-09-30] MEDS ORDERED: Morphine Sulfate Inj 2 MG/ML Vial IV.PUSH PRN (12:00)
[2017-10-01] MEDS: Erythromycin Ethylsuccinate Susp 200 MG/5 ML 100 ML Bottle PO SCH (05:38)
[2017-10-01] MEDS: Enoxaparin Inj 30 MG/0.3 ML Syringe SQ SCH (08:51)
--- NOTE | 2017-10-04 11:46 | P.DS ---
Date of admission: 09/16/17 14:11 Primary care physician: Saniya Primary Care Physician Attending physician on discharge: Ruben Martinez Anticipated date of discharge: 10/01/17 Brief History from admission: 37 year old female with abdominal pain; nausea; vomiting; CT findings of early SBO vs PSBO likely secondary to adhesions from prior surgeries; POD 7 exlap DS: Diagnosis - Discharge Diagnosis (1) Small bowel obstruction Status: Acute DS: Medications - Discharge Medications Prescriptions: hydrocodone-acetaminophen 1 tab PO Q4H PRN #15 tab PRN Reason: acute post op surgical pain ondansetron HCl [Zofran] 4 mg PO Q6H PRN #10 tab PRN Reason: Nausea DS: Summary Hospital Course: This is a 37 year old female with abdominal pain; nausea; vomiting; CT findings of early SBO vs PSBO likely secondary to adhesions from prior surgeries. POD8 ex lap; ileocecal resection with primary anastomosis. She was able to tolerate a regular diet. Her pain was controlled using oral pain medications. The VENTURA dressing was removed. She will follow up in the office. - Time Spent with Patient Total time spent providing and/or coordinating discharge services: Less than 30 minutes - Quality: VTE Deep Vein Thrombosis/Pulmonary Embolism Present on Admission: No Exam Narrative: Alert and awake Cardio: RRR Resp: CTAB Abd: VENTURA removed; incision c/d/i; abd soft Results Procedures completed during hospitalization: POD8 ex lap; ileocecal resection with primary anastomosis Completed studies during hospitalization: Pending at discharge 09/21/17 07:42 Surgical [PTH] Routine - Impressions ITS Impressions Abdomen/Pelvis CT 09/16/17 08:48 CONCLUSION: 1. Multiple loops of borderline dilated small bowel with multiple air-fluid levels. The findings are of concern for early or partial small bowel obstruction. 2. Moderate to severe scoliosis and postsurgical changes. 3. Apparent small leiomyoma in the uterus. There is free fluid in the cul-de- sac which can be a physiologic finding in a female patient this age. Small Bowel X-Ray 09/17/17 00:00 CONCLUSION: Distended loops of small bowel and contrast eventually makes it to the colon could be an ileus, however partial small bowel obstruction is not excluded. Abdomen X-Ray 09/26/17 00:00 CONCLUSION: Stable distended loops of bowel not significantly changed since the prior exam. Discharge Plan - Discharge Disposition Patient Disposition: 01 Discharge Home - Discharge Condition Condition: Good - Discharge Order Discharge Orders: Discharge Order (Routine); Ordered 10/01/17 Ordered By: Ruben Martinez - Discharge Details Anticipated Discharge Date: 10/01/17 Discharge Comment: rx on chart - Physicians Team Primary Care Provider: Primary Care Saniya Alcantara Attending Provider: Ruben Martinez Other Providers: Surgeons,[facility] ; Ruben Martinez MD
== END 2017-10-01 12:02 | disposition home or self-care (01) ==
LOC: PHED 08:09 → PHEDA 14:11 → PH3 14:52 → HSDI 09-21 15:48 → N03 09-21 22:29 → N07 09-24 19:28
PROVIDERS: ADMIT Surgery Trauma Surgery; ATTEND Surgery Trauma Surgery